=== PATIENT | male | born 1940 | race African-American/Black ===

== ENCOUNTER 2016-05-20 19:37 | Emergency (ER) | payer MEDICARE, OTHER ==
[~2016-05-20] VITALS: Ht 175.3 cm; Wt 78.0 kg
[~2016-05-20 19:37] MED LIST: BACTRIM DOUBLE S1 E1 ORAL; BACTRIM DS TAB1 EAC1 ORAL; CEPHALEXIN500 MG ORAL; CIPROFLOXACIN500 M2 ORAL; FLOMAX0.4 MG ORAL; MACROBID100 MG ORAL; NITROFURANTOIN100 M2 ORAL; NKM; PHENAZOPYRIDIN100 MG ORAL; PHENAZOPYRIDIN200 MG ORAL; TAMSULOSIN HCL0.4 MG ORAL; TRAMADOL HCL50 MG ORAL; UNOBMED
[2016-05-20] MEDS ORDERED: NKM (19:44)
[2016-05-20 20:08] VITALS: BP 159/87
[2016-05-20 20:48] LABS: APPEARANCE,URINE VERY CLOUDY; KETONES,URINE NEGATIVE (NEGATIVE); LEUKOCYTE ESTERASE ,URINE 3+ (NEGATIVE); NITRITE,URINE NEGATIVE (NEGATIVE); PH,URINE 9 (4.5-8.0); PROTEIN,URINE 3+ (NEGATIVE); UROBILINOGEN,URINE NORMAL MG/DL (0.0-1.0)
--- NOTE | 2016-05-20 21:06 | Emergency Room Report ---
History of Present Illness General Chief Complaint: Male Urogenital Problems Source: Patient Present Illness HPI This patient has an indwelling Adrian catheter. He states he has had the catheter for about 9 months. He does have an appointment with a urologist at the end of this month [place]. He states that he believes that his prostate is the problem. Regardless, the patient states that about 4-5 hours ago he noticed that his Adrian catheter was clogged and not draining. He denies fever or chills. He denies nausea or vomiting. He denies abdominal pain. He has no other complaints. Allergies: Coded Allergies: No Known Allergies (Unverified , 03/01/14) Patient History Past Medical History: other - urinary retention with indwelling adrian catheter. Social History: Denies: alcohol use, drug use, smoking Reviewed Nursing Documentation: PMH: Agreed, PSxH: Agreed Nursing Documentation-PMH Past Medical History: No Stated History Hx Cardiac Problems: No Hx Hypertension: No Hx Pacemaker: No Hx Asthma: No Hx COPD: No Hx Diabetes: No Hx Cancer: Yes - prostate Hx Gastrointestinal Problems: No Hx Neurological Problems: No Hx Cerebrovascular Accident: No Hx Seizures: No Review of Systems All Other Systems: negative except mentioned in HPI Physical Exam Vital Signs Date Time Temp Pulse Resp B/P Pulse Ox O2 Delivery O2 Flow Rate FiO2 05/20/16 19:39 98.2 98 18 184/88 99 Room Air Sp02 EP Interpretation: reviewed, normal General Appearance: no apparent distress, alert, GCS 15, non-toxic Head: normocephalic, atraumatic Eyes: bilateral eye PERRL, bilateral eye normal inspection ENT: hearing grossly normal, normal pharynx, no angioedema, normal voice Neck: normal inspection Respiratory: no respiratory distress, no retraction, no accessory muscle use, speaking full sentences Cardiovascular #1: no edema Gastrointestinal: normal bowel sounds, non tender, soft, non-distended, no guarding, no rebound Rectal: deferred Musculoskeletal: back normal, gait/station normal, normal range of motion, non- tender Neurologic: alert, oriented x3, responsive, motor strength/tone normal, sensory intact, speech normal Psychiatric: judgement/insight normal, memory normal, mood/affect normal, no suicidal/homicidal ideation Skin: normal color, no rash, warm/dry, well hydrated Medical Decision Making Diagnostic Impression: Primary Impression: Adrian catheter problem ER Course This patient has a clogged Adrian catheter. Adrian catheter was replaced. The patient feels much better. Urinalysis is consistent with colonization. The patient has no systemic symptoms. Patient is instructed to followup closely with her primary care physician and with the [place] urologist as previously planned. The patient's given return precautions and followup instructions. Labs Test 05/20/16 20:00 Urine Color Yellow Urine Appearance Very cloudy Urine pH 9 (4.5-8.0) Urine Specific [place] 1.015 (1.005-1.035) Urine Protein 3+ (NEGATIVE) Urine Glucose (UA) Negative (NEGATIVE) Urine Ketones Negative (NEGATIVE) Urine Occult Blood Negative (NEGATIVE) Urine Nitrite Negative (NEGATIVE) Urine Bilirubin Negative (NEGATIVE) Urine Urobilinogen Normal MG/DL (0.0-1.0) Urine Leukocyte Esterase 3+ (NEGATIVE) Urine RBC 0-2 /HPF (0 - 0) Urine WBC 5-10 /HPF (0 - 0) Urine Squamous Epithelial Cells Few /LPF (NONE/OCC) Urine Triple Phosphate Crystals Moderate /LPF (NONE) Urine Amorphous Sediment Many /LPF (NONE) Urine Bacteria Moderate /HPF (NONE) Last Vital Signs Date Time Temp Pulse Resp B/P Pulse Ox O2 Delivery O2 Flow Rate FiO2 05/20/16 20:08 98.2 84 18 159/87 99 Room Air Status: improved Disposition: HOME, SELF-CARE Condition: Improved Referrals: NOT CHOSEN [facility]/,REFERRING (PCP) CHANI TRUONG D.O. May 20, 2016 21:06
[2016-05-20 21:10] LABS: RBC,URINE 0-2 /HPF (0 - 0)
[2016-05-20 21:12] LABS: AMORPHOUS SEDIMENT,UR MANY /LPF; BACTERIA,URINE MODERATE /HPF; SQUAMOUS EPITHELIAL CELL,UR FEW /LPF (NONE/OCC)
[2016-05-20 21:13] LABS: TRIPLE PHOSPHATE CRYSTAL,UR MODERATE /LPF
[2016-05-20 21:17] VITALS: BP 140/78
[2016-05-20 21:34] VITALS: BP 140/78
== END 2016-05-20 21:50 | disposition home or self-care (01) ==
LOC: EMR 19:59
DX: T83.9XXA Unspecified complication of genitourinary prosthetic device, implant and graft, initial encounter (principal); Z85.46 Personal history of malignant neoplasm of prostate; X58.XXXA Exposure to other specified factors, initial encounter; Y93.9 Activity, unspecified; Y92.89 Other specified places as the place of occurrence of the external cause
CPT/HCPCS: 81001; 87086; 99283

== ENCOUNTER 2016-06-18 20:47 | Emergency (ER) | payer MEDICARE, OTHER ==
[~2016-06-18] VITALS: Ht 167.6 cm; Wt 68.0 kg
[2016-06-18 21:50] VITALS: BP 115/87
[2016-06-18 22:38] VITALS: BP 115/87
--- NOTE | 2016-06-19 03:42 | Emergency Room Report ---
History of Present Illness General Chief Complaint: General Complaint Source: Patient Present Illness HPI 75-year-old male presents to ED for evaluation. Patient is here to have Adrian catheter replaced. States that Adrian catheter placed 2 weeks ago at [place]. States that he feels blocked since this morning and unable to urinate. Denies any pain. Denies any fevers or chills. Denies flank pain. No aggravating relieving factors. Denies any other associated symptoms Allergies: Coded Allergies: No Known Allergies (Unverified , 03/01/14) Patient History Past Medical History: other - BPH Past Surgical History: none Pertinent Family History: none Social History: Denies: alcohol use, drug use, smoking Immunizations: UTD Reviewed Nursing Documentation: PMH: Agreed, PSxH: Agreed Nursing Documentation-PMH Past Medical History: No History, Except For Hx Cardiac Problems: No Hx Hypertension: No Hx Pacemaker: No Hx Asthma: No Hx COPD: No Hx Diabetes: No Hx Cancer: Yes - prostate Hx Gastrointestinal Problems: No Hx Neurological Problems: No Hx Cerebrovascular Accident: No Hx Seizures: No Review of Systems All Other Systems: negative except mentioned in HPI Physical Exam Vital Signs Date Time Temp Pulse Resp B/P Pulse Ox O2 Delivery O2 Flow Rate FiO2 06/18/16 21:40 98.1 78 16 115/87 100 Room Air Sp02 EP Interpretation: reviewed, normal General Appearance: no apparent distress, alert, GCS 15, non-toxic Head: normocephalic, atraumatic Eyes: bilateral eye PERRL, bilateral eye normal inspection ENT: hearing grossly normal, normal pharynx, no angioedema, normal voice Neck: full range of motion, supple/symm/no masses Respiratory: chest non-tender, lungs clear, normal breath sounds, speaking full sentences Cardiovascular #1: regular rate, rhythm, no edema Cardiovascular #2: 2+ carotid (R), 2+ carotid (L), 2+ radial (R), 2+ radial (L) , 2+ dorsalis pedis (R), 2+ dorsalis pedis (L) Gastrointestinal: normal bowel sounds, non tender, soft, non-distended, no guarding, no rebound Rectal: deferred Genitourinary: normal inspection, no CVA tenderness, other - adrian Musculoskeletal: back normal, gait/station normal, normal range of motion, non- tender Neurologic: alert, oriented x3, responsive, motor strength/tone normal, sensory intact, speech normal Psychiatric: judgement/insight normal, memory normal, mood/affect normal, no suicidal/homicidal ideation Reflexes: 3+ bicep (R), 3+ bicep (L), 3+ tricep (R), 3+ tricep (L), 3+ knee (R) , 3+ knee (L) Skin: normal color, no rash, warm/dry, well hydrated Lymphatic: no adenopathy Medical Decision Making Diagnostic Impression: Primary Impression: Urinary retention ER Course Hospital Course 75-year-old M presents to ED complaining of urinary retention. Differential diagnoses include: obstruction, UTI, BPH Clinical course Patient placed on stretcher. After initial history and physical I ordered adrian cather with immediate relief of obstruction Diagnosis - urinary retention Stable and discharged home with adrian + leg bag. Instructed to followup with PMD/urologist. Return to ED if symptoms recur or worsen Last Vital Signs Date Time Temp Pulse Resp B/P Pulse Ox O2 Delivery O2 Flow Rate FiO2 06/18/16 22:38 98.1 81 16 115/87 100 Room Air Status: improved Disposition: HOME, SELF-CARE Condition: Stable Referrals: NOT CHOSEN [facility]/,REFERRING (PCP) Patient Instructions: Benign Prostatic Hypertrophy KENDRICK CASTELLON M.D. Jun 19, 2016 03:42
== END 2016-06-18 22:38 | disposition home or self-care (01) ==
LOC: EMR 21:14
DX: R33.9 Retention of urine, unspecified (principal); Z85.46 Personal history of malignant neoplasm of prostate; N40.0 Benign prostatic hyperplasia without lower urinary tract symptoms; T83.9XXA Unspecified complication of genitourinary prosthetic device, implant and graft, initial encounter; Y84.6 Urinary catheterization as the cause of abnormal reaction of the patient, or of later complication, without mention of misadventure at the time of the procedure; Y92.9 Unspecified place or not applicable; Y99.8 Other external cause status

== ENCOUNTER 2016-08-28 01:29 | Emergency (ER) | payer MEDICARE, OTHER ==
[~2016-08-28] VITALS: Ht 175.3 cm; Wt 78.0 kg
--- NOTE | 2016-08-28 02:14 | Emergency Room Report ---
History of Present Illness General Chief Complaint: Male Urogenital Problems Source: Patient Present Illness HPI This is a 75-year-old male with history of urinary retention. He has a chronic Bell. His most recent one was placed on a month ago. The last for 5 hours his been unable to urinate. Similar symptom in the past. No fever chills but no nausea vomiting. Pain is 10 out of 10. Localized suprapubic area. No trauma. Allergies: Coded Allergies: No Known Allergies (Unverified , 03/01/14) Patient History Past Medical History: see triage record, old chart reviewed Past Surgical History: other Pertinent Family History: none Social History: Denies: smoking Immunizations: other Reviewed Nursing Documentation: PMH: Agreed, PSxH: Agreed Nursing Documentation-PMH Hx Cardiac Problems: No Hx Hypertension: No Hx Pacemaker: No Hx Asthma: No Hx COPD: No Hx Diabetes: No Hx Cancer: Yes - prostate Hx Neurological Problems: No Hx Cerebrovascular Accident: No Hx Seizures: No Review of Systems Eye: Denies: blurred vision, eye pain ENT: Denies: ear pain, nose congestion, throat swelling Respiratory: Denies: cough, shortness of breath Cardiovascular: Denies: chest pain, palpitations Gastrointestinal: Denies: abdominal pain, diarrhea, nausea, vomiting Genitourinary: Reports: retention Musculoskeletal: Denies: back pain, joint pain Skin: Denies: rash Neurological: Denies: headache, numbness Endocrine: Denies: increased thirst, increased urine Hematologic/Lymphatic: Denies: easy bruising All Other Systems: negative except mentioned in HPI Physical Exam Vital Signs Date Time Temp Pulse Resp B/P Pulse Ox O2 Delivery O2 Flow Rate FiO2 08/28/16 01:29 97.5 114 22 166/96 98 Room Air vitals with hypertension and tachycardia Sp02 EP Interpretation: reviewed, normal General Appearance: well appearing, alert, mild distress Head: normocephalic, atraumatic Eyes: bilateral eye EOMI, bilateral eye PERRL ENT: hearing grossly normal, normal pharynx Neck: full range of motion, supple, no meningismus Respiratory: chest non-tender, lungs clear, normal breath sounds Cardiovascular #1: regular rate, rhythm, no murmur Gastrointestinal: normal bowel sounds, non tender, no mass, no organomegaly, no bruit, non-distended, tenderness - Full bladder Genitourinary: other - Bell with calcium deposit along the tubi Musculoskeletal: back normal, gait/station normal, normal range of motion Psychiatric: mood/affect normal Skin: warm/dry Procedures Additional Procedure Procedure Narrative Procedure: Bell insertion Indication: Urinary retention Description: Under sterile condition, remove his Bell catheter. It was a 16 Romanian coud. I replaced it within a regular 18 Romanian catheter. Patient had about 1500 mL output. He felt much better. Blood pressure normalized. She tolerated seizure without a problem. Medical Decision Making Diagnostic Impression: Primary Impression: Urinary retention ER Course Patient present with urinary retention. Secondary to obstruction from the region calcium deposit. No evidence of infection. We'll discharge home. Last Vital Signs Date Time Temp Pulse Resp B/P Pulse Ox O2 Delivery O2 Flow Rate FiO2 08/28/16 01:29 97.5 114 22 166/96 98 Room Air Status: improved Disposition: HOME, SELF-CARE Condition: Stable Additional Instructions: followup with your Dr. in 7 days. Return it worse. KAMILLE MORELAND M.D. August 28, 2016 02:14
[2016-08-28 02:28] VITALS: BP 151/92
[2016-08-28 02:29] VITALS: BP 166/96
[2016-08-29] MEDS ORDERED: NITROFURANTOIN100 M2 ORAL (22:04)
[2016-08-29] MEDS ORDERED: FLOMAX0.4 MG ORAL (22:04)
== END 2016-08-28 02:30 | disposition home or self-care (01) ==
LOC: EDBD 01:29 → EDUNIT# 01:29 → EMR 02:05
DX: R33.9 Retention of urine, unspecified (principal); Z85.46 Personal history of malignant neoplasm of prostate
CPT/HCPCS: 51702; 99284

== ENCOUNTER 2016-12-16 18:48 | Emergency (ER) | payer MEDICARE, OTHER ==
[~2016-12-16] VITALS: Ht 175.3 cm; Wt 78.0 kg
[2016-12-16 19:44] LABS: APPEARANCE,URINE SLIGHTLY CLOUDY; KETONES,URINE 1+ (NEGATIVE); LEUKOCYTE ESTERASE ,URINE 3+ (NEGATIVE); NITRITE,URINE NEGATIVE (NEGATIVE); PH,URINE 6.5 (4.5-8.0); PROTEIN,URINE 3+ (NEGATIVE); UROBILINOGEN,URINE NORMAL MG/DL (0.0-1.0)
[2016-12-16 20:02] VITALS: BP 134/79
[2016-12-16 20:27] LABS: AMORPHOUS SEDIMENT,UR FEW /LPF; BACTERIA,URINE MODERATE /HPF; YEAST,URINE FEW /HPF
[2016-12-16] MEDS ORDERED: BACTRIM DS TAB1 EAC1 ORAL (21:17)
[2016-12-16 21:25] VITALS: BP 134/79
[2016-12-16 21:27] VITALS: BP 134/79
--- NOTE | 2016-12-16 23:25 | Emergency Room Report ---
History of Present Illness General Chief Complaint: General Complaint Source: Patient Present Illness HPI The patient is a 76-year-old male presenting for Bell catheter malfunction. He has been seen in this emergency department many times for the same complaints. He states he has been unable to pass urine since this morning and is now experiencing lower abdominal pain. This is described as a 10 out of 10 dull ache and does not radiate from the mid lower abdomen. This began hours after he was unable to urinate. He denies other symptoms including nausea, vomiting, fever, chills, back pain, penile discharge Allergies: Coded Allergies: No Known Allergies (Unverified , 03/01/14) Patient History Past Medical History: see triage record Pertinent Family History: none Reviewed Nursing Documentation: PMH: Agreed, PSxH: Agreed Nursing Documentation-PMH Hx Cardiac Problems: No Hx Hypertension: No Hx Pacemaker: No Hx Asthma: No Hx COPD: No Hx Diabetes: No Hx Cancer: No Hx Dialysis: No Hx Neurological Problems: No Hx Cerebrovascular Accident: No Hx Seizures: No Review of Systems All Other Systems: negative except mentioned in HPI Physical Exam Vital Signs Date Time Temp Pulse Resp B/P (MAP) Pulse Ox O2 Delivery O2 Flow Rate FiO2 12/16/16 18:54 98.2 107 20 169/80 100 Room Air Sp02 EP Interpretation: reviewed, normal General Appearance: no apparent distress, alert, GCS 15, non-toxic Head: normocephalic, atraumatic Eyes: bilateral eye normal inspection, bilateral eye PERRL ENT: hearing grossly normal, normal pharynx, no angioedema, normal voice Neck: full range of motion, supple/symm/no masses Respiratory: chest non-tender, lungs clear, normal breath sounds, speaking full sentences Gastrointestinal: normal bowel sounds, soft, non-distended, no guarding, no rebound, tenderness - suprapubic Genitourinary: normal inspection, no CVA tenderness, other - Bell catheter in place Musculoskeletal: back normal, gait/station normal, normal range of motion, non- tender Neurologic: alert, oriented x3, responsive, motor strength/tone normal, sensory intact, speech normal Psychiatric: judgement/insight normal, memory normal, mood/affect normal, no suicidal/homicidal ideation Skin: normal color, no rash, warm/dry, well hydrated Medical Decision Making PA Attestation Dr. Ferrera is my supervising physician. Patient management was discussed with my supervising physician Diagnostic Impression: Primary Impression: Bell catheter problem Qualified Codes: T83.9XXA - Unspecified complication of genitourinary prosthetic device, implant and graft, initial encounter Additional Impression: UTI (urinary tract infection) Qualified Codes: N39.0 - Urinary tract infection, site not specified; R31.9 - Hematuria, unspecified ER Course The patient is a 76-year-old male presenting for Bell catheter malfunction Differential diagnoses considered but not limited to: Physical Bell catheter malfunction, urinary tract infection, pyelonephritis, hematoma, stricture, among others Physical exam: he appears to be in mild distress. There is tenderness to palpation over suprapubic region only. No CVA tenderness Bell catheter is replaced. 600 mL collected. The patient states that pain is now a 0/10 and he is much more relaxed. Blood pressure has returned to normal. Urinalysis shows signs of infection with blood. Based on microbiology report from past infection, the patient is given a prescription for Bactrim DS. He needs to followup with his urologist as soon as possible. He is given precautions to return to the emergency department Laboratory Tests Test 12/16/16 19:30 Urine Color Brown Urine Appearance Slightly cloudy Urine pH 6.5 (4.5-8.0) Urine Specific [place] 1.015 (1.005-1.035) Urine Protein 3+ (NEGATIVE) H Urine Glucose (UA) Negative (NEGATIVE) Urine Ketones 1+ (NEGATIVE) H Urine Occult Blood 5+ (NEGATIVE) H Urine Nitrite Negative (NEGATIVE) Urine Bilirubin Negative (NEGATIVE) Urine Urobilinogen Normal MG/DL (0.0-1.0) Urine Leukocyte Esterase 3+ (NEGATIVE) H Urine RBC 10-15 /HPF (0 - 0) H Urine WBC 5-10 /HPF (0 - 0) H Urine Squamous Epithelial Cells None /LPF (NONE/OCC) Urine Amorphous Sediment Few /LPF (NONE) H Urine Bacteria Moderate /HPF (NONE) H Urine Yeast Few /HPF (NONE) H Lab Results Impression Significant occult blood, RBCs, white blood cells, and bacteria Last Vital Signs Date Time Temp Pulse Resp B/P (MAP) Pulse Ox O2 Delivery O2 Flow Rate FiO2 12/16/16 21:27 98.5 84 20 134/79 100 Room Air Status: improved Disposition: HOME, SELF-CARE Condition: Improved Scripts Trimethoprim/Sulfamethoxazole 160/800* (BACTRIM DS TABLET*) 1 Each Tablet 1 TAB ORAL TWICE A DAY, #14 TAB Prov: MAGNUS HOUSTON 12/16/16 Referrals: NOT CHOSEN [facility]/,REFERRING (PCP) Patient Instructions: Urinary Tract Infection, Acute Urinary Retention, Male Additional Instructions: I discussed my findings with the patient. All questions and concerns have been answered. Treatment and medication compliance have been addressed. I advised the patient that they need to follow up with PMD in 3-5 days. Return to ED if symptoms worsen, new symptoms arise, or if needed for any reason. Patient verbalized understanding of discharge instructions. MAGNUS HOUSTON Dec 16, 2016 23:25
== END 2016-12-16 21:27 | disposition home or self-care (01) ==
LOC: EMR 19:08
DX: T83.098A Other mechanical complication of other urinary catheter, initial encounter (principal); Y84.6 Urinary catheterization as the cause of abnormal reaction of the patient, or of later complication, without mention of misadventure at the time of the procedure; Y92.009 Unspecified place in unspecified non-institutional (private) residence as the place of occurrence of the external cause; N39.0 Urinary tract infection, site not specified
CPT/HCPCS: 51702; 81003; 87086; 87181; 99283

== ENCOUNTER 2017-01-07 18:59 | Emergency (ER) | payer MEDICARE, OTHER ==
[~2017-01-07] VITALS: Ht 175.3 cm; Wt 77.1 kg
[2017-01-07 19:10] VITALS: BP 163/83
[2017-01-07 20:05] LABS: KETONES,URINE NEGATIVE (NEGATIVE); LEUKOCYTE ESTERASE ,URINE 3+ (NEGATIVE); NITRITE,URINE POSITIVE (NEGATIVE); PH,URINE 7 (4.5-8.0); PROTEIN,URINE 2+ (NEGATIVE); UROBILINOGEN,URINE NORMAL MG/DL (0.0-1.0)
[2017-01-07 20:08] LABS: APPEARANCE,URINE SLIGHTLY CLOUDY
[2017-01-07 20:27] LABS: BACTERIA,URINE MODERATE /HPF; RBC,URINE 15-20 /HPF (0 - 0)
[2017-01-07 20:28] LABS: AMORPHOUS SEDIMENT,UR FEW /LPF
[2017-01-07] MEDS ORDERED: BACTRIM DS TAB1 EAC1 ORAL (20:36)
[2017-01-07 21:00] VITALS: BP 154/80
--- NOTE | 2017-01-07 21:03 | Emergency Room Report ---
History of Present Illness General Chief Complaint: Male Urogenital Problems Source: Patient (MAGNUS HOUSTON) Present Illness HPI The patient is a 76-year-old male with a history of urinary retention well known to this emergency Department presenting for Adrian catheter change. He states that he has not had any passage of urine for the past 5 hours and is developing pain described as a 6/10 dull ache to the mid lower abdomen. Does not radiate. This frequently happens. The patient had a urinary tract infection for the last visit and states that he took all prescribed antibiotics. He denies any other symptoms including F, chills, back pain, N, V (MAGNUS HOUSTON) Allergies: Coded Allergies: No Known Allergies (Unverified , 03/01/14) Patient History Past Medical History: see triage record Pertinent Family History: none Reviewed Nursing Documentation: PMH: Agreed, PSxH: Agreed (MAGNUS HOUSTON) Nursing Documentation-PMH Hx Cardiac Problems: No Hx Hypertension: No Hx Pacemaker: No Hx Asthma: No Hx COPD: No Hx Diabetes: No Hx Cancer: No Hx Dialysis: No Hx Neurological Problems: No Hx Cerebrovascular Accident: No Hx Seizures: No (MAGNUS HOUSTON) Review of Systems All Other Systems: negative except mentioned in HPI (MAGNUS HOUSTON) Physical Exam Vital Signs Date Time Temp Pulse Resp B/P (MAP) Pulse Ox O2 Delivery O2 Flow Rate FiO2 01/07/17 19:09 97.9 105 20 163/83 99 Room Air Sp02 EP Interpretation: reviewed, normal General Appearance: no apparent distress, alert, GCS 15, non-toxic Head: normocephalic, atraumatic Eyes: bilateral eye normal inspection, bilateral eye PERRL ENT: hearing grossly normal, normal pharynx, no angioedema, normal voice Neck: full range of motion, supple/symm/no masses Gastrointestinal: normal inspection, soft, tenderness - suprapubic Genitourinary: penis normal, other - adrian catheter in place Neurologic: alert, oriented x3, responsive, motor strength/tone normal, sensory intact, speech normal Psychiatric: judgement/insight normal, memory normal, mood/affect normal, no suicidal/homicidal ideation Skin: normal color, no rash, warm/dry, well hydrated (MAGNUS HOUSTON P.AKamron) Medical Decision Making PA Attestation Dr. Yi is my supervising physician. Patient management was discussed with my supervising physician (MAGNUS HOUSTON) Diagnostic Impression: Primary Impression: Urinary tract infection Qualified Codes: T83.511A - Infection and inflammatory reaction due to indwelling urethral catheter, initial encounter; N39.0 - Urinary tract infection , site not specified ER Course The patient is a 76 year old male presenting for Adrian catheter change DDx considered but not limited to: UTI, pyelonephritis, stricture, prostatitis, among others PE: Afebrile.NAD Abd is soft. TTP over suprapubic region only No CVA tenderness Adrian catheter changed without difficulty. Good flow. Pt feels relieved UA shows infection Most recent microbiology report shows susceptibility with Bactrim. He is again prescribed this antibiotic and needs to follow up with his primary doctor and urologist. ER precautions given Laboratory Tests Test 01/07/17 19:40 Urine Color Pale yellow Urine Appearance Slightly cloudy Urine pH 7 (4.5-8.0) Urine Specific [place] 1.010 (1.005-1.035) Urine Protein 2+ (NEGATIVE) H Urine Glucose (UA) Negative (NEGATIVE) Urine Ketones Negative (NEGATIVE) Urine Occult Blood 4+ (NEGATIVE) H Urine Nitrite Positive (NEGATIVE) H Urine Bilirubin Negative (NEGATIVE) Urine Urobilinogen Normal MG/DL (0.0-1.0) Urine Leukocyte Esterase 3+ (NEGATIVE) H Urine RBC 15-20 /HPF (0 - 0) H Urine WBC 10-15 /HPF (0 - 0) H Urine Squamous Epithelial Cells None /LPF (NONE/OCC) Urine Amorphous Sediment Few /LPF (NONE) H Urine Bacteria Moderate /HPF (NONE) H Lab Results Impression consistent with UTI (MAGNUS HOUSTON P.AKamron) ER Course Patient with positive urine culture, sensitive to Bactrim (Vicky Ortega M.D.) Last Vital Signs Date Time Temp Pulse Resp B/P (MAP) Pulse Ox O2 Delivery O2 Flow Rate FiO2 01/07/17 19:10 97.9 105 20 163/83 99 Room Air Status: improved (MAGNUS HOUSTON P.A.) Disposition: HOME, SELF-CARE Condition: Improved Scripts Trimethoprim/Sulfamethoxazole 160/800* (BACTRIM DS TABLET*) 1 Each Tablet 1 TAB ORAL TWICE A DAY, #20 TAB Prov: MAGNUS HOUSTON 01/07/17 Patient Instructions: Urinary Tract Infection Additional Instructions: I discussed my findings with the patient. All questions and concerns have been answered. Treatment and medication compliance have been addressed. I advised the patient that they need to follow up with PMD in 3-5 days. Return to ED if symptoms worsen, new symptoms arise, or if needed for any reason. Patient verbalized understanding of discharge instructions. The patient was informed he needs to see a urologist urgently. MAGNUS HOUSTON Jan 07, 2017 21:03 Vicky Ortega M.D. Jan 11, 2017 03:53
[2017-03-19] MEDS ORDERED: UNOBMED (13:40)
[2017-03-19] MEDS ORDERED: BACTRIM DS TAB1 EAC1 ORAL (14:24)
== END 2017-01-07 22:00 | disposition home or self-care (01) ==
LOC: EMR 21:48
DX: N39.0 Urinary tract infection, site not specified (principal)
CPT/HCPCS: 81003; 87086; 87181; 99283

== ENCOUNTER 2017-02-01 15:45 | Emergency (ER) | payer MEDICARE, OTHER ==
[~2017-02-01] VITALS: Ht 175.3 cm; Wt 78.0 kg
--- NOTE | 2017-02-01 16:22 | Emergency Room Report ---
History of Present Illness General Chief Complaint: Male Urogenital Problems Source: Patient Present Illness HPI [id number] walkin with request again for adrian change States not draining today Denies fever/chills, abd pain, nausea/vomiting, back pain Has been here multiple times for same Last was 2 weeks ago. Urine Cx shows susceptibility to Bactrim - he completed course of this already had nitrite + UTI last time Allergies: Coded Allergies: No Known Allergies (Unverified , 03/01/14) Patient History Past Medical History: see triage record, old chart reviewed Past Surgical History: none Pertinent Family History: none Social History: Denies: smoking, alcohol use, drug use Immunizations: UTD Reviewed Nursing Documentation: PMH: Agreed, PSxH: Agreed Nursing Documentation-PMH Hx Cardiac Problems: No Hx Hypertension: No Hx Pacemaker: No Hx Asthma: No Hx COPD: No Hx Diabetes: No Hx Cancer: No Hx Dialysis: No Hx Neurological Problems: No Hx Cerebrovascular Accident: No Hx Seizures: No Review of Systems All Other Systems: negative except mentioned in HPI Physical Exam Vital Signs Date Time Temp Pulse Resp B/P (MAP) Pulse Ox O2 Delivery O2 Flow Rate FiO2 02/01/17 15:52 97.7 93 18 164/71 100 Room Air Sp02 EP Interpretation: reviewed, normal General Appearance: normal inspection, well appearing, no apparent distress, alert Head: atraumatic ENT: normal ENT inspection, hearing grossly normal, normal voice Neck: normal inspection, full range of motion, supple, no bony tend Respiratory: normal inspection, lungs clear, normal breath sounds, no respiratory distress, no retraction, no wheezing Cardiovascular #1: regular rate, rhythm, no edema Gastrointestinal: normal inspection, normal bowel sounds, non tender, soft, no guarding, no hernia Genitourinary: no CVA tenderness, other - Adrian in place. Yellow urine in bag. After flushing, still does drain. Musculoskeletal: normal inspection, back normal, normal range of motion, Sonya' s Sign negative Neurologic: normal inspection, alert, responsive, speech normal Psychiatric: normal inspection, judgement/insight normal, mood/affect normal Skin: normal inspection, normal color, no rash Medical Decision Making Diagnostic Impression: Primary Impression: Adrian catheter problem Qualified Codes: T83.9XXA - Unspecified complication of genitourinary prosthetic device, implant and graft, initial encounter ER Course Adrian cath not draining VSS. Afebrile Non focal abdomen No fever/chills, nausea/vomiting UA: Nitrite positive again. 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 Feb 01, 2017 16:22
[2017-02-01 16:43] LABS: APPEARANCE,URINE CLOUDY; KETONES,URINE NEGATIVE (NEGATIVE); LEUKOCYTE ESTERASE ,URINE 3+ (NEGATIVE); NITRITE,URINE POSITIVE (NEGATIVE); PH,URINE 9 (4.5-8.0); PROTEIN,URINE 2+ (NEGATIVE); UROBILINOGEN,URINE NORMAL MG/DL (0.0-1.0)
[2017-02-01 17:05] VITALS: BP 136/70
[2017-02-01 17:10] LABS: AMORPHOUS SEDIMENT,UR MANY /LPF; BACTERIA,URINE MANY /HPF; RBC,URINE 15-20 /HPF (0 - 0); SQUAMOUS EPITHELIAL CELL,UR OCCASIONAL /LPF (NONE/OCC)
[2017-03-19] MEDS ORDERED: UNOBMED (13:40)
[2017-03-19] MEDS ORDERED: BACTRIM DS TAB1 EAC1 ORAL (14:24)
== END 2017-02-01 17:05 | disposition home or self-care (01) ==
LOC: EMR 16:30
DX: T83.098A Other mechanical complication of other urinary catheter, initial encounter (principal); Y84.6 Urinary catheterization as the cause of abnormal reaction of the patient, or of later complication, without mention of misadventure at the time of the procedure; Y92.009 Unspecified place in unspecified non-institutional (private) residence as the place of occurrence of the external cause; Z87.440 Personal history of urinary (tract) infections
CPT/HCPCS: 81003; 87086; 87181; 99283

== ENCOUNTER 2017-02-17 02:48 | Emergency (ER) | payer MEDICARE, OTHER ==
[~2017-02-17] VITALS: Ht 175.3 cm; Wt 59.9 kg
[2017-02-17 02:50] VITALS: BP 162/80
[2017-02-17 03:19] VITALS: BP 162/80
--- NOTE | 2017-02-17 04:50 | Emergency Room Report ---
History of Present Illness General Chief Complaint: Male Urogenital Problems Source: Patient, EMS Present Illness HPI 76-year-old male presents ED for evaluation. Patient brought in by EMS stating he is unable to urinate for the last 6 hours. Patient has a history of BPH and states he has a Adrian catheter in place. States he is unable to flush the catheter. Describes 6/10 suprapubic pain, sharp, nonradiating. Denies fevers or chills, left flank pain. Denies nausea or vomiting. Patient is well-known to [facility] [place] has been here multiple times for Adrian catheter placement. No other aggravating relieving factors. Denies any other associated symptoms Allergies: Coded Allergies: No Known Allergies (Unverified , 03/01/14) Patient History Past Medical History: none Past Surgical History: none Pertinent Family History: none Social History: Denies: smoking, alcohol use, drug use Immunizations: UTD Reviewed Nursing Documentation: PMH: Agreed, PSxH: Agreed Nursing Documentation-PMH Hx Cardiac Problems: No Hx Hypertension: No Hx Pacemaker: No Hx Asthma: No Hx COPD: No Hx Diabetes: No Hx Dialysis: No Hx Neurological Problems: No Hx Cerebrovascular Accident: No Hx Seizures: No Review of Systems All Other Systems: negative except mentioned in HPI Physical Exam Vital Signs Date Time Temp Pulse Resp B/P (MAP) Pulse Ox O2 Delivery O2 Flow Rate FiO2 02/17/17 02:43 98.1 107 18 162/80 98 Room Air Sp02 EP Interpretation: reviewed, normal General Appearance: no apparent distress, alert, GCS 15, non-toxic Head: normocephalic, atraumatic Eyes: bilateral eye normal inspection, bilateral eye PERRL ENT: hearing grossly normal, normal pharynx, no angioedema, normal voice Neck: full range of motion, supple/symm/no masses Respiratory: chest non-tender, lungs clear, normal breath sounds, speaking full sentences Cardiovascular #1: regular rate, rhythm, no edema Cardiovascular #2: 2+ carotid (R), 2+ carotid (L), 2+ radial (R), 2+ radial (L) , 2+ dorsalis pedis (R), 2+ dorsalis pedis (L) Gastrointestinal: normal bowel sounds, non tender, soft, non-distended, no guarding, no rebound Rectal: deferred Genitourinary: normal inspection, no CVA tenderness Musculoskeletal: back normal, gait/station normal, normal range of motion, non- tender Neurologic: alert, oriented x3, responsive, motor strength/tone normal, sensory intact, speech normal Psychiatric: judgement/insight normal, memory normal, mood/affect normal, no suicidal/homicidal ideation Reflexes: 3+ bicep (R), 3+ bicep (L), 3+ tricep (R), 3+ tricep (L), 3+ knee (R) , 3+ knee (L) Skin: normal color, no rash, warm/dry, well hydrated Lymphatic: no adenopathy Medical Decision Making Diagnostic Impression: Primary Impression: Adrian catheter problem Qualified Codes: T83.9XXA - Unspecified complication of genitourinary prosthetic device, implant and graft, initial encounter ER Course Hospital Course 76-year-old M presents to ED complaining of urinary retention. Differential diagnoses include: obstruction, UTI, BPH Clinical course Patient placed on stretcher. After initial history and physical, old Adrian catheter was removed, and replaced with new adrian cather with immediate relief of obstruction Diagnosis - urinary retention Stable and discharged home with adrian + leg bag. Instructed to followup with PMD/urologist. Return to ED if symptoms recur or worsen Last Vital Signs Date Time Temp Pulse Resp B/P (MAP) Pulse Ox O2 Delivery O2 Flow Rate FiO2 02/17/17 03:19 98.1 18 162/80 98 Room Air 02/17/17 02:43 107 Status: improved Disposition: HOME, SELF-CARE Condition: Stable Referrals: NOT CHOSEN IPA/MD,REFERRING (PCP) Patient Instructions: Adrian Catheter Care, Adult, [id number] KENDRICK CASTELLON M.D. Feb 17, 2017 04:50
[2017-03-19] MEDS ORDERED: UNOBMED (13:40)
[2017-03-19] MEDS ORDERED: BACTRIM DS TAB1 EAC1 ORAL (14:24)
== END 2017-02-17 03:19 | disposition home or self-care (01) ==
LOC: EDBD 02:48 → EMR 03:00
DX: N40.1 Benign prostatic hyperplasia with lower urinary tract symptoms (principal); R33.8 Other retention of urine; T83.9XXA Unspecified complication of genitourinary prosthetic device, implant and graft, initial encounter; Y92.9 Unspecified place or not applicable
CPT/HCPCS: 51702; 99283

== ENCOUNTER → 2017-03-19 | Emergency (ER) | payer MEDICARE, OTHER ==
[~2017-03-19] VITALS: Ht 175.3 cm; Wt 78.0 kg
[~2017-03-19] MED LIST changes: +Bactrim DS (160mg/800mg) tab ORAL ONE; +IBUPROFEN600 MG ORAL
--- NOTE | 2017-03-19 14:35 | Emergency Room Report ---
History of Present Illness General Chief Complaint: Male Urogenital Problems Source: Patient Present Illness HPI 76-year-old male walks in with Bell not functioning was placed previously for obstruction Patient was not discharged in antibiotics at the time Urine culture shows UTI, susceptible to Bactrim Denies abdominal pain, nausea or vomiting or diarrhea denie fever chills Allergies: Coded Allergies: No Known Allergies (Unverified , 03/01/14) Patient History Past Medical History: see triage record Past Surgical History: none Social History: Denies: smoking, alcohol use, drug use Immunizations: UTD Reviewed Nursing Documentation: PMH: Agreed, PSxH: Agreed Nursing Documentation-PMH Hx Cardiac Problems: No Hx Hypertension: No Hx Pacemaker: No Hx Asthma: No Hx COPD: No Hx Diabetes: No Hx Dialysis: No Hx Neurological Problems: No Hx Cerebrovascular Accident: No Hx Seizures: No Review of Systems All Other Systems: negative except mentioned in HPI Physical Exam Vital Signs Date Time Temp Pulse Resp B/P (MAP) Pulse Ox O2 Delivery O2 Flow Rate FiO2 03/19/17 13:37 98.1 119 18 176/87 99 Room Air Sp02 EP Interpretation: reviewed, normal General Appearance: normal inspection, well appearing, no apparent distress, alert, GCS 15, non-toxic Head: normocephalic, atraumatic Eyes: bilateral eye PERRL, bilateral eye EOMI ENT: normal ENT inspection, hearing grossly normal, normal pharynx, no angioedema, normal voice, TMs + canals normal, uvula midline, moist mucus membranes Neck: normal inspection, full range of motion, supple, thyroid normal, no meningismus, no bony tend Respiratory: normal inspection, lungs clear, normal breath sounds, no rhonchi, no respiratory distress, no retraction, no accessory muscle use, no wheezing, speaking full sentences Cardiovascular #1: regular rate, rhythm, no edema, no JVD, normal capillary refill Gastrointestinal: normal inspection, normal bowel sounds, non tender, soft, no mass, no peritonitis, non-distended, no guarding, no hernia, no pulsatile mass Genitourinary: no CVA tenderness, other - Bell tip encrusted with thick urine , pus Musculoskeletal: normal inspection, back normal, normal range of motion, no calf tenderness, pelvis stable, Sonya's Sign negative Neurologic: normal inspection, alert, oriented x3, responsive, physical instructor III-XII nml as tested, motor strength/tone normal, cerebellar normal, normal gait, speech normal Psychiatric: normal inspection, judgement/insight normal, mood/affect normal, no suicidal/homicidal ideation, no delusions Skin: normal inspection, normal color, no rash Lymphatic: normal inspection, no adenopathy Medical Decision Making Diagnostic Impression: Primary Impression: Bell catheter problem Qualified Codes: T83.9XXA - Unspecified complication of genitourinary prosthetic device, implant and graft, initial encounter Additional Impression: UTI (urinary tract infection) Qualified Codes: N30.01 - Acute cystitis with hematuria ER Course Bell replaced Bactrim antibiotics provided based on previous urine cultures Vital signs stable, afebrile Not septic appearing ER course: Patient has remained stable during ED stay. Patient is to be discharged to home. Prescriptions given are bactrim Patient is instructed to follow up with their primary care doctor within 5 days. Strict return precautions discussed with patient such as fever, chills, worsening/severe pain, nausea, vomiting, which may indicate severe illness. Patient verbalizes understanding and agrees with plan. Please note that this Emergency Department Report was dictated using [employer] staff member technology software, occasionally this can lead to erroneous entry secondary to interpretation by the dictation equipment Last Vital Signs Date Time Temp Pulse Resp B/P (MAP) Pulse Ox O2 Delivery O2 Flow Rate FiO2 03/19/17 13:37 98.1 119 18 176/87 99 Room Air Status: improved Disposition: HOME, SELF-CARE Condition: Improved Scripts Trimethoprim/Sulfamethoxazole 160/800* (BACTRIM DS TABLET*) 1 Each Tablet 1 TAB ORAL Q12H for 7 Days, #13 TAB 0 Refills Prov: NONA LAMAS M.D. 03/19/17 Patient Instructions: Urinary Tract Infection NONA LAMAS M.D. Mar 19, 2017 14:35
[2017-03-19 14:37] VITALS: BP 176/87
[2017-03-19 14:47] VITALS: BP 176/87
[2017-03-19 15:06] LABS: APPEARANCE,URINE CLOUDY; KETONES,URINE NEGATIVE (NEGATIVE); LEUKOCYTE ESTERASE ,URINE 3+ (NEGATIVE); NITRITE,URINE NEGATIVE (NEGATIVE); PH,URINE 9 (4.5-8.0); PROTEIN,URINE 3+ (NEGATIVE); UROBILINOGEN,URINE NORMAL MG/DL (0.0-1.0)
[2017-03-19 15:24] LABS: BACTERIA,URINE MANY /HPF
[2017-03-19 15:25] LABS: AMORPHOUS SEDIMENT,UR MODERATE /LPF
== END | disposition home or self-care (01) ==
LOC: EMR 14:13
DX: T83.091A Other mechanical complication of indwelling urethral catheter, initial encounter (principal); Y84.6 Urinary catheterization as the cause of abnormal reaction of the patient, or of later complication, without mention of misadventure at the time of the procedure; Y92.009 Unspecified place in unspecified non-institutional (private) residence as the place of occurrence of the external cause; N39.0 Urinary tract infection, site not specified
CPT/HCPCS: 51702; 81003; 87086; 87181; 99283

== ENCOUNTER 2017-04-03 22:36 | Emergency (ER) | payer MEDICARE, OTHER ==
[~2017-04-03] VITALS: Ht 175.3 cm; Wt 78.0 kg
[~2017-04-03 22:36] MED LIST changes: -Bactrim DS (160mg/800mg) tab ORAL ONE; -IBUPROFEN600 MG ORAL
[2017-04-04 00:11] VITALS: BP 155/70
[2017-04-04 00:13] VITALS: BP 155/70
--- NOTE | 2017-04-04 03:09 | Emergency Room Report ---
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 Also states that he has a right inguinal hernia for many years which has been bothering him. No fever no chills no vomiting has been passing gas and stool regularly Allergies: Coded Allergies: No Known Allergies (Unverified , 03/01/14) Patient History Past Medical History: see triage record Past Surgical History: none Pertinent Family History: none Reviewed Nursing Documentation: PMH: Agreed, PSxH: Agreed Nursing Documentation-PMH Past Medical History: No History, Except For Hx Cardiac Problems: No Hx Hypertension: No Hx Pacemaker: No Hx Asthma: No Hx COPD: No Hx Diabetes: No Hx Dialysis: No Hx Neurological Problems: No Hx Cerebrovascular Accident: No Hx Seizures: No Review of Systems All Other Systems: negative except mentioned in HPI Physical Exam Vital Signs Date Time Temp Pulse Resp B/P (MAP) Pulse Ox O2 Delivery O2 Flow Rate FiO2 04/03/17 22:43 97.9 95 16 178/84 98 Sp02 EP Interpretation: reviewed, normal General Appearance: alert, GCS 15, non-toxic, mild distress Head: normocephalic, atraumatic Eyes: bilateral eye normal inspection, bilateral eye PERRL, bilateral eye EOMI ENT: normal ENT inspection, normal pharynx, normal voice, moist mucus membranes Neck: normal inspection, full range of motion, supple Respiratory: normal inspection, lungs clear, normal breath sounds, no respiratory distress, no retraction, no wheezing, speaking full sentences, chest symmetrical Cardiovascular #1: normal inspection, regular rate, rhythm, no edema, normal capillary refill Cardiovascular #2: 2+ radial (R), 2+ radial (L) Gastrointestinal: other - Right-sided inguinal hernia that is very soft and completely reducible. Genitourinary: other - Bell noted with Allyson colored urine Musculoskeletal: normal inspection, back normal, normal range of motion, non- tender Neurologic: normal inspection, alert, oriented x3, responsive, motor strength/ tone normal, sensory intact, normal gait, speech normal Psychiatric: normal inspection, judgement/insight normal, memory normal Skin: normal inspection, normal color, no rash, warm/dry, well hydrated, normal turgor Medical Decision Making Diagnostic Impression: Primary Impression: Inguinal hernia of right side without obstruction or gangrene Additional Impression: Bell catheter problem ER Course 76-year-old male with right-sided inguinal hernia, and Bell blockage DDX: Bell malfunction, will replace Right-sided inguinal hernia without any signs of strangulation or obstruction Plan: Bell replacement ER course: Patient has remained stable during ED stay. Inguinal hernias reducible, abdomen is nontender Bell was replaced and patient discharged home with a leg bag Disposition: Patient is to be discharged to home. Patient is instructed to follow up with their primary care doctor within 5 days. Patient is instructed to follow up with urology and outpatient surgery within 3 days. Strict return precautions discussed with patient such as fever, chills, worsening/severe pain, chest pain, SOB, nausea, vomiting, which may indicate severe illness. Patient verbalizes understanding and agrees with plan. Please note that this Emergency Department Report was dictated using [employer] nurse technology software, occasionally this can lead to erroneous entry secondary to interpretation by the dictation equipment Last Vital Signs Date Time Temp Pulse Resp B/P (MAP) Pulse Ox O2 Delivery O2 Flow Rate FiO2 04/04/17 00:13 97.9 80 16 155/70 98 Disposition: HOME, SELF-CARE Condition: Improved Referrals: NOT CHOSEN IPA/MD,REFERRING (PCP) Patient Instructions: Hernia, Adult, [id number], Bell Catheter Care, Adult, [id number] Additional Instructions: Please followup with Dr. Hall for follow up for your inguinal hernia. Phone number is [phone] Please followup with your urologist in one week Vicky Ortega M.D. Apr 04, 2017 03:09
== END 2017-04-04 00:13 | disposition home or self-care (01) ==
LOC: EMR 22:45
DX: K40.90 Unilateral inguinal hernia, without obstruction or gangrene, not specified as recurrent (principal); T83.098A Other mechanical complication of other urinary catheter, initial encounter; N40.0 Benign prostatic hyperplasia without lower urinary tract symptoms
CPT/HCPCS: 51702; 99283

== ENCOUNTER 2017-04-09 03:02 | Emergency (ER) | payer MEDICARE, OTHER ==
[~2017-04-09] VITALS: Ht 175.3 cm; Wt 78.0 kg
--- NOTE | 2017-04-09 03:32 | Emergency Room Report ---
History of Present Illness General Chief Complaint: General Complaint Source: Patient Present Illness HPI Is a 76-year-old male with a history of BPH. He has a history of urinary retention with chronic Bell. He was here 5 days ago. He presents with chief complaint of urinary retention for the last 6 hours for unable to urinate. No urine drainage. Similar symptom in the past. No fever chills but no hematuria. Allergies: Coded Allergies: No Known Allergies (Unverified , 03/01/14) Patient History Past Medical History: see triage record, old chart reviewed Past Surgical History: other Pertinent Family History: none Social History: Denies: smoking Immunizations: other Reviewed Nursing Documentation: PMH: Agreed, PSxH: Agreed Nursing Documentation-PMH Past Medical History: No Stated History Hx Cardiac Problems: No Hx Hypertension: No Hx Pacemaker: No Hx Asthma: No Hx COPD: No Hx Diabetes: No Hx Dialysis: No Hx Neurological Problems: No Hx Cerebrovascular Accident: No Hx Seizures: No Review of Systems Eye: Denies: eye pain, blurred vision ENT: Denies: ear pain, nose congestion, throat swelling Respiratory: Denies: cough, shortness of breath Cardiovascular: Denies: chest pain, palpitations Gastrointestinal: Denies: abdominal pain, diarrhea, nausea, vomiting Genitourinary: Reports: retention Musculoskeletal: Denies: back pain, joint pain Skin: Denies: rash Neurological: Denies: headache, numbness Endocrine: Denies: increased thirst, increased urine Hematologic/Lymphatic: Denies: easy bruising All Other Systems: negative except mentioned in HPI Physical Exam Vital Signs Date Time Temp Pulse Resp B/P (MAP) Pulse Ox O2 Delivery O2 Flow Rate FiO2 04/09/17 03:02 99.0 102 18 162/87 100 Room Air vitals and high blood pressure Sp02 EP Interpretation: reviewed, normal General Appearance: well appearing, alert, mild distress Head: normocephalic, atraumatic Eyes: bilateral eye PERRL, bilateral eye EOMI ENT: hearing grossly normal, normal pharynx Neck: full range of motion, supple, no meningismus Respiratory: chest non-tender, lungs clear, normal breath sounds Cardiovascular #1: regular rate, rhythm, no murmur Gastrointestinal: normal bowel sounds, non tender, no mass, no organomegaly, no bruit, non-distended Genitourinary: other - Patient has a 16 Welsh Bell. It is clogged with debris. Musculoskeletal: back normal, gait/station normal, normal range of motion Psychiatric: mood/affect normal Skin: warm/dry Procedures Additional Procedure Procedure Narrative Procedure: Insertion of Bell Indication: Urinary retention Description: Under sterile condition, remove the old Bell. It was clogged with debris. I place a 22 Welsh Bell. Good urine output. A dilator came out. Patient felt better. No complication. Patient tolerated procedure without problem. Medical Decision Making Diagnostic Impression: Primary Impression: Urinary retention ER Course Patient with urinary retention. I suspect that his Bell was too small. I place a larger 1. Explained this to the patient. Last Vital Signs Date Time Temp Pulse Resp B/P (MAP) Pulse Ox O2 Delivery O2 Flow Rate FiO2 04/09/17 03:02 99.0 102 18 162/87 100 Room Air Status: improved Disposition: HOME, SELF-CARE Condition: Stable Additional Instructions: Followup with your Dr. in 7 days. Return if worse. KAMILLE MORELAND M.D. Apr 09, 2017 03:32
[2017-04-09] MEDS ORDERED: IBUPROFEN600 MG ORAL (03:38)
[2017-04-09 03:42] VITALS: BP 162/87
== END 2017-04-09 03:54 | disposition home or self-care (01) ==
LOC: EDBD 03:02 → EMR 03:29
DX: T83.098A Other mechanical complication of other urinary catheter, initial encounter (principal); R33.9 Retention of urine, unspecified; Y84.6 Urinary catheterization as the cause of abnormal reaction of the patient, or of later complication, without mention of misadventure at the time of the procedure; Y92.9 Unspecified place or not applicable
CPT/HCPCS: 51702; 99283

== ENCOUNTER 2017-08-10 18:32 | Emergency (ER) | payer MEDICARE, OTHER ==
[~2017-08-10] VITALS: Ht 175.3 cm; Wt 77.1 kg
[~2017-08-10 18:32] MED LIST changes: +IBUPROFEN600 MG ORAL
--- NOTE | 2017-08-10 19:18 | Emergency Room Report ---
History of Present Illness General Chief Complaint: Male Urogenital Problems Source: Patient Present Illness HPI Patient has a permanent indwelling Adrian. He's states it stopped draining today. He has pain in his lower abdomen at this time. Denies any fevers, chills, nausea, vomiting or change in bowels. He does have a right inguinal hernia also. Pain rated 7/10, suprapubic, constant, pressure, not radiate. No meds taken. H/O DM and BPH. Denies chest pain, dyspnea, anxiety, rashes, extremity pain, headache, change in bowels. (NB - the patient has been seen here multiple times, however, he was given a new registration number because of an error with his name. .) Allergies: Coded Allergies: No Known Allergies (Unverified , 08/10/17) Patient History Past Medical History: see triage record, old chart reviewed Social History: Denies: smoking Social History Narrative at home Reviewed Nursing Documentation: PMH: Agreed; PSxH: Agreed Nursing Documentation-PMH Past Medical History: No History, Except For Review of Systems All Other Systems: negative except mentioned in HPI Physical Exam Vital Signs Date Time Temp Pulse Resp B/P (MAP) Pulse Ox O2 Delivery O2 Flow Rate FiO2 08/10/17 18:57 98.6 55 20 180/86 99 Room Air 98.6 Sp02 EP Interpretation: reviewed, normal General Appearance: well appearing, no apparent distress Head: normocephalic, atraumatic Eyes: bilateral eye normal inspection, bilateral eye PERRL ENT: hearing grossly normal, normal voice, moist mucus membranes Neck: full range of motion, supple Respiratory: no respiratory distress, speaking full sentences Cardiovascular #1: regular rate, rhythm Cardiovascular #2: 2+ radial (L) Gastrointestinal: normal inspection, normal bowel sounds, tenderness - suprapubic Genitourinary: no CVA tenderness, other - adrian Musculoskeletal: no calf tenderness Neurologic: alert, normal gait, grossly normal Psychiatric: mood/affect normal Skin: no rash, other - plethoric Medical Decision Making Diagnostic Impression: Primary Impression: Complication, blocked Adrian catheter Qualified Codes: T83.091A - Other mechanical complication of indwelling urethral catheter, initial encounter Additional Impression: UTI (urinary tract infection) Qualified Codes: T83.511A - Infection and inflammatory reaction due to indwelling urethral catheter, initial encounter; N39.0 - Urinary tract infection , site not specified ER Course Patient has a blocked indwelling fluids started 1 PM. We need to determine if he's had a UTI there. We'll change the Adrian out. The patient also be given Tylenol at this time. Not toxic. Improved pain post adrian replacement. UA with pyuria. Review of prior cultures = + Providencia rettgeri with sens to bactrim. Prior renal function normal. Bactrim given. Culture ordered. Improved with treatment. Patient stable for outpatient observation and treatment. Laboratory Tests Test 08/10/17 19:55 Urine Color Pale yellow Urine Appearance Very cloudy Urine pH 9 (4.5-8.0) Urine Specific Humble 1.015 (1.005-1.035) Urine Protein 3+ (NEGATIVE) H Urine Glucose (UA) Negative (NEGATIVE) Urine Ketones Negative (NEGATIVE) Urine Occult Blood 4+ (NEGATIVE) H Urine Nitrite Positive (NEGATIVE) H Urine Bilirubin Negative (NEGATIVE) Urine Urobilinogen Normal MG/DL (0.0-1.0) Urine Leukocyte Esterase 3+ (NEGATIVE) H Urine RBC 2-4 /HPF (0 - 0) H Urine WBC 30-40 /HPF (0 - 0) H Urine Squamous Epithelial Cells None /LPF (NONE/OCC) Urine Bacteria Many /HPF (NONE) H Last Vital Signs Date Time Temp Pulse Resp B/P (MAP) Pulse Ox O2 Delivery O2 Flow Rate FiO2 08/10/17 18:57 98.6 55 20 180/86 99 Room Air 98.6 Status: improved Disposition: HOME, SELF-CARE Condition: Improved Scripts Trimethoprim/Sulfamethoxazole 160/800* (BACTRIM DS TABLET*) 1 Each Tablet 1 TAB ORAL Q12H, #14 TAB 0 Refills Prov: Mal Philip M.D. 08/10/17 Mal Philip M.D. August 10, 2017 19:18
[2017-08-10 19:20] VITALS: BP 104/75
[2017-08-10 20:09] LABS: APPEARANCE,URINE VERY CLOUDY; BILIRUBIN, URINE NEGATIVE (NEGATIVE); COLOR,URINE PALE YELLOW; GLUCOSE, URINE (UA) NEGATIVE (NEGATIVE); KETONES,URINE NEGATIVE (NEGATIVE); LEUKOCYTE ESTERASE ,URINE 3+ (NEGATIVE); NITRITE,URINE POSITIVE (NEGATIVE); PH,URINE 9 (4.5-8.0); PROTEIN,URINE 3+ (NEGATIVE); UROBILINOGEN,URINE NORMAL MG/DL (0.0-1.0)
[2017-08-10] MEDS ORDERED: Bactrim-DS 1 tab ORAL ONE (21:15)
[2017-08-10] MEDS ORDERED: BACTRIM DS TAB1 EAC1 ORAL (21:16)
[2017-08-10 21:32] VITALS: BP 110/78
[2017-08-10 21:43] VITALS: BP 110/78
== END 2017-08-10 21:45 | disposition home or self-care (01) ==
LOC: EMR 19:41 → MERGE 19:41 → EMR 21:45
DX: T83.091A Other mechanical complication of indwelling urethral catheter, initial encounter (principal); T83.511A Infection and inflammatory reaction due to indwelling urethral catheter, initial encounter; N39.0 Urinary tract infection, site not specified; Y84.6 Urinary catheterization as the cause of abnormal reaction of the patient, or of later complication, without mention of misadventure at the time of the procedure; Y92.9 Unspecified place or not applicable
CPT/HCPCS: 81003; 87086; 87181; 99283

== ENCOUNTER 2017-09-26 06:36 | Emergency (ER) | payer MEDICARE, OTHER ==
[~2017-09-26] VITALS: Ht 175.3 cm; Wt 77.1 kg
--- NOTE | 2017-09-26 06:59 | Emergency Room Report ---
History of Present Illness General Chief Complaint: Male Urogenital Problems Source: Patient Present Illness HPI Patient is a 76-year-old male who has chronic indwelling Bell catheter. Patient presented for decreased urine output. Patient states that he had last urinated last night approximately 11 PM. He denies any fever. He had not been having any vomiting. Patient denies recent trauma. He had not been having any change in the drainage.The patient denies suprapubic pain. Allergies: Coded Allergies: No Known Allergies (Unverified , 03/01/14) Patient History Past Medical History: see triage record Reviewed Nursing Documentation: PMH: Agreed; PSxH: Agreed Nursing Documentation-PMH Past Medical History: No History, Except For Hx Cardiac Problems: No Hx Hypertension: No Hx Pacemaker: No Hx Asthma: No Hx COPD: No Hx Diabetes: No Hx Dialysis: No Hx Neurological Problems: No Hx Cerebrovascular Accident: No Hx Seizures: No Review of Systems All Other Systems: negative except mentioned in HPI Physical Exam Vital Signs Date Time Temp Pulse Resp B/P (MAP) Pulse Ox O2 Delivery O2 Flow Rate FiO2 09/26/17 06:41 97.8 96 16 199/102 97 97.9 General Appearance: well appearing, no apparent distress, alert, GCS 15 Head: normocephalic, atraumatic ENT: hearing grossly normal, normal voice Neck: full range of motion, supple Respiratory: no respiratory distress, speaking full sentences Gastrointestinal: normal inspection, other - distended bladder Genitourinary: normal inspection Musculoskeletal: no calf tenderness Neurologic: normal inspection, alert, oriented x3, normal gait Psychiatric: mood/affect normal Skin: no rash Medical Decision Making Diagnostic Impression: Primary Impression: Urinary retention Additional Impression: Complication, blocked Bell catheter ER Course The patient presented for a urinary retention. Differential diagnosis included was not limited to acute renal failure, catheter obstruction, urinary tract infection and among others. Patient has a benign exam and does not appear to require any further imaging or laboratory testing at this time. The patient's Bell catheter was changed good urine output. The patient is advised to follow up with primary care doctor in 1-2 days. Patient is advised to return if any worsening condition or if any changes in status that are concerning. This report is dictated with [employer] warehouse delivery driver software which may occasionally lead to discrepancies related to use of this software. Last Vital Signs Date Time Temp Pulse Resp B/P (MAP) Pulse Ox O2 Delivery O2 Flow Rate FiO2 09/26/17 06:41 97.8 96 16 199/102 97 97.9 Status: improved Disposition: HOME, SELF-CARE Condition: Stable Scripts Nitrofurantoin Monohyd/M-Cryst* (MACROBID 100 MG*) 100 Mg Capsule 100 MG ORAL EVERY 12 HOURS, #14 CAP Prov: Simone Yi MD 09/26/17 Simone Yi MD Sep 26, 2017 06:59
[2017-09-26] MEDS ORDERED: NITROFURANTOIN100 M2 ORAL (07:00)
[2017-09-26 07:08] VITALS: BP 199/102
== END 2017-09-26 07:09 | disposition home or self-care (01) ==
LOC: EMR 06:57
DX: R33.9 Retention of urine, unspecified (principal); T83.091A Other mechanical complication of indwelling urethral catheter, initial encounter; Y84.6 Urinary catheterization as the cause of abnormal reaction of the patient, or of later complication, without mention of misadventure at the time of the procedure; Y92.9 Unspecified place or not applicable
CPT/HCPCS: 99283

== ENCOUNTER 2017-10-30 22:42 | Emergency (ER) | payer MEDICARE, OTHER ==
[~2017-10-30] VITALS: Ht 175.3 cm; Wt 78.0 kg
[2017-10-30] MEDS ORDERED: CEPHALEXIN500 MG ORAL (23:31)
[2017-10-30 23:58] VITALS: BP 134/68
[2017-10-31 00:12] VITALS: BP 134/68
--- NOTE | 2017-10-31 00:49 | Emergency Room Report ---
History of Present Illness General Chief Complaint: Male Urogenital Problems Source: Patient, Medical Record Present Illness HPI Patient is a 77-year-old male presented after increased the clogging of his Bell catheter. Patient was noted to have increased discomfort. The patient had multiple prior visits for similar symptoms. He reports having increased pain to the right ankle area from hernia which had become more prominent. Patient denies any nausea or vomiting.He reports having some increased cloudy urine. He denies any fever or vomiting. Allergies: Coded Allergies: No Known Allergies (Unverified , 03/01/14) Patient History Past Medical History: see triage record Reviewed Nursing Documentation: PMH: Agreed; PSxH: Agreed Nursing Documentation-PMH Hx Cardiac Problems: No Hx Hypertension: No Hx Pacemaker: No Hx Asthma: No Hx COPD: No Hx Diabetes: No Hx Dialysis: No Hx Neurological Problems: No Hx Cerebrovascular Accident: No Hx Seizures: No Review of Systems All Other Systems: negative except mentioned in HPI Physical Exam Vital Signs Date Time Temp Pulse Resp B/P (MAP) Pulse Ox O2 Delivery O2 Flow Rate FiO2 10/30/17 22:54 97.7 86 18 155/93 98 Room Air 97.7 Sp02 EP Interpretation: reviewed, normal General Appearance: normal inspection, well appearing, no apparent distress, alert, GCS 15 Head: atraumatic ENT: normal ENT inspection, hearing grossly normal, normal voice Neck: normal inspection, full range of motion, supple, no bony tend Respiratory: normal inspection, lungs clear, normal breath sounds, no respiratory distress, no retraction, no wheezing Cardiovascular #1: regular rate, rhythm, no edema Gastrointestinal: normal inspection, normal bowel sounds, non tender, soft, no guarding, hernia Genitourinary: no CVA tenderness Musculoskeletal: normal inspection, back normal, normal range of motion Neurologic: normal inspection, alert, responsive, speech normal Psychiatric: normal inspection, judgement/insight normal, mood/affect normal Skin: normal inspection, normal color, no rash Medical Decision Making Diagnostic Impression: Primary Impression: Bell catheter problem ER Course Patient presented for Bell catheter pain. Differential diagnosis included wasn 't limited to Bell catheter obstruction, urinary tract infection, inguinal hernia, bowel obstruction among others. Patient has a benign exam and does not appear to require any further imaging or laboratory testing at this time. The patient's Bell catheter was changes are noted have good urine output. The patient's hernia was reduced with the light manual pressure. The patient was given protrusion for Keflex for likely urinary infection. The patient is advised to follow up with primary care doctor in 1-2 days. Patient is advised to return if any worsening condition or if any changes in status that are concerning. This report is dictated with My e[employer]hoe kiss setter hand software which may occasionally lead to discrepancies related to use of this software. Last Vital Signs Date Time Temp Pulse Resp B/P (MAP) Pulse Ox O2 Delivery O2 Flow Rate FiO2 10/31/17 00:12 98.0 73 16 134/68 97 Room Air 98.0 Status: improved Disposition: HOME, SELF-CARE Condition: Stable Scripts Cephalexin* (KEFLEX*) 500 Mg Capsule 500 MG ORAL EVERY 6 HOURS, #28 CAP Prov: Simone Yi MD 10/30/17 Referrals: NOT CHOSEN [facility]/,REFERRING (PCP) Patient Instructions: Bell Catheter Care, Adult Simone Yi MD Oct 31, 2017 00:49
== END 2017-10-31 00:12 | disposition home or self-care (01) ==
LOC: EMR 23:30
DX: T83.84XA Pain due to genitourinary prosthetic devices, implants and grafts, initial encounter (principal); Y84.6 Urinary catheterization as the cause of abnormal reaction of the patient, or of later complication, without mention of misadventure at the time of the procedure; Y92.9 Unspecified place or not applicable
CPT/HCPCS: 99283

== ENCOUNTER 2017-11-08 16:12 | Emergency (ER) | payer MEDICARE, OTHER ==
[~2017-11-08] VITALS: Ht 175.3 cm; Wt 78.0 kg
[2017-11-08 16:50] VITALS: BP 156/78
[2017-11-08] MEDS ORDERED: BACTRIM DS TAB1 EAC1 ORAL (17:29)
--- NOTE | 2017-11-08 17:48 | Emergency Room Report ---
History of Present Illness General Chief Complaint: Male Urogenital Problems Source: Patient Present Illness HPI 77-year-old male presents ED for Adrian catheter placement. States he's had this catheter for some time now needed to be replaced because it is clogged. Started today around 11 AM. Denies any fevers or chills. Denies any flank pain. Denies any nausea or vomiting. No other aggravating relieving factors. Denies any other associated symptoms Allergies: Coded Allergies: No Known Allergies (Unverified , 03/01/14) Patient History Past Medical History: none Past Surgical History: none Pertinent Family History: none Social History: Denies: smoking, alcohol use, drug use Immunizations: UTD Reviewed Nursing Documentation: PMH: Agreed; PSxH: Agreed Nursing Documentation-PMH Hx Cardiac Problems: No Hx Hypertension: No Hx Pacemaker: No Hx Asthma: No Hx COPD: No Hx Diabetes: No Hx Dialysis: No Hx Neurological Problems: No Hx Cerebrovascular Accident: No Hx Seizures: No Review of Systems All Other Systems: negative except mentioned in HPI Physical Exam Vital Signs Date Time Temp Pulse Resp B/P (MAP) Pulse Ox O2 Delivery O2 Flow Rate FiO2 11/08/17 16:20 97.2 3 20 177/79 94 Room Air 97.2 Sp02 EP Interpretation: reviewed, normal General Appearance: no apparent distress, alert, GCS 15, non-toxic Head: normocephalic, atraumatic Eyes: bilateral eye normal inspection, bilateral eye PERRL ENT: hearing grossly normal, normal pharynx, no angioedema, normal voice Neck: full range of motion, supple/symm/no masses Respiratory: chest non-tender, lungs clear, normal breath sounds, speaking full sentences Cardiovascular #1: regular rate, rhythm, no edema Cardiovascular #2: 2+ carotid (R), 2+ carotid (L), 2+ radial (R), 2+ radial (L) , 2+ dorsalis pedis (R), 2+ dorsalis pedis (L) Gastrointestinal: normal bowel sounds, non tender, soft, non-distended, no guarding, no rebound Rectal: deferred Genitourinary: normal inspection, no CVA tenderness Musculoskeletal: back normal, gait/station normal, normal range of motion, non- tender Neurologic: alert, oriented x3, responsive, motor strength/tone normal, sensory intact, speech normal Psychiatric: judgement/insight normal, memory normal, mood/affect normal, no suicidal/homicidal ideation Reflexes: 3+ bicep (R), 3+ bicep (L), 3+ tricep (R), 3+ tricep (L), 3+ knee (R) , 3+ knee (L) Skin: normal color, no rash, warm/dry, well hydrated Lymphatic: no adenopathy Medical Decision Making Diagnostic Impression: Primary Impression: Complication, blocked Adrian catheter Qualified Codes: T83.091A - Other mechanical complication of indwelling urethral catheter, initial encounter ER Course Hospital Course 77 yo M presents with blocked adrian catheter. Differential diagnoses include: obstruction, UTI, BPH Clinical course Patient placed on stretcher. After initial history and physical we replaced adrian cather with immediate relief of obstruction Patient states he has a urologist that he follows up with. Does not want any referrals. Patient safe for discharge Diagnosis - blocked adrian catheter Stable and discharged home with adrian + leg bag. Instructed to followup with PMD/urologist. Return to ED if symptoms recur or worsen Last Vital Signs Date Time Temp Pulse Resp B/P (MAP) Pulse Ox O2 Delivery O2 Flow Rate FiO2 11/08/17 16:20 97.2 3 20 177/79 94 Room Air 97.2 Status: improved Disposition: HOME, SELF-CARE Condition: Stable Scripts Trimethoprim/Sulfamethoxazole 160/800* (BACTRIM DS TABLET*) 1 Each Tablet 1 TAB ORAL Q12H, #14 TAB 0 Refills Prov: Huy Khoury MD 11/08/17 Referrals: NOT CHOSEN [facility]/,REFERRING (PCP) Patient Instructions: Adrian Catheter Care, Adult, [id number] Huy Khoury MD Nov 08, 2017 17:48
[2017-11-08 18:10] VITALS: BP 153/72
== END 2017-11-08 18:20 | disposition home or self-care (01) ==
LOC: EMR 16:35
DX: T83.091A Other mechanical complication of indwelling urethral catheter, initial encounter (principal); Y84.6 Urinary catheterization as the cause of abnormal reaction of the patient, or of later complication, without mention of misadventure at the time of the procedure; Y92.9 Unspecified place or not applicable
CPT/HCPCS: 99283

== ENCOUNTER 2017-11-16 15:08 | Emergency (ER) | payer MEDICARE, OTHER ==
[~2017-11-16] VITALS: Ht 177.8 cm; Wt 63.5 kg
--- NOTE | 2017-11-16 16:46 | Emergency Room Report ---
History of Present Illness General Chief Complaint: General Complaint Source: Patient Present Illness HPI Mr. Espinal is a pleasant 77-year-old male who presents with Adrian obstruction. He's had severe suprapubic discomfort for the last 3 hours. Sudden onset at 11 am due to infection, he has recurrent urinary obstruction. He has had a catheter in place for 4 months. He has urology appointment this week. He is followed by the [place] Allergies: Coded Allergies: No Known Allergies (Unverified , 03/01/14) Patient History Past Medical History: other - inguinal hernia Past Surgical History: none Social History: Denies: smoking, alcohol use Social History Narrative retired, lives with brother Nursing Documentation-[facility] Past Medical History: No History, Except For Hx Cardiac Problems: No Hx Hypertension: No Hx Pacemaker: No Hx Asthma: No Hx COPD: No Hx Diabetes: No Hx Dialysis: No Hx Neurological Problems: No Hx Cerebrovascular Accident: No Hx Seizures: No Review of Systems Constitutional: Denies: fever, malaise Respiratory: Denies: cough Cardiovascular: Denies: chest pain Gastrointestinal: Reports: abdominal pain All Other Systems: negative except mentioned in HPI Physical Exam Vital Signs Date Time Temp Pulse Resp B/P (MAP) Pulse Ox O2 Delivery O2 Flow Rate FiO2 11/16/17 15:15 97.7 102 18 155/78 96 Room Air 97.7 Sp02 EP Interpretation: reviewed, normal General Appearance: no apparent distress, alert, GCS 15, non-toxic, severe distress - crying out in severe pain Head: normocephalic, atraumatic Eyes: bilateral eye normal inspection ENT: hearing grossly normal, normal pharynx, no angioedema, normal voice Neck: full range of motion, supple/symm/no masses Respiratory: chest non-tender, lungs clear, normal breath sounds, speaking full sentences Cardiovascular #1: regular rate, rhythm, no edema Gastrointestinal: normal bowel sounds, non tender, soft, no guarding, no rebound, distended - suprapubic. Distention right soft inguinal hernia Rectal: deferred Genitourinary: normal inspection, no CVA tenderness Musculoskeletal: back normal, gait/station normal, normal range of motion, non- tender, calf tenderness Neurologic: alert, oriented x3, responsive, motor strength/tone normal, sensory intact, speech normal Psychiatric: judgement/insight normal, memory normal, mood/affect normal Skin: normal color, no rash, warm/dry, well hydrated Medical Decision Making Diagnostic Impression: Primary Impression: Acute urinary obstruction Additional Impression: Complication, blocked Adrian catheter ER Course Mr. Gomez presents with acute urinary retention due to blocked adrian catheter with contained a severe mount of sediment residue. He has follow-up with urology this week I assisted with Adrian catheter placement. Symptoms resolved after urine expressed. Last Vital Signs Date Time Temp Pulse Resp B/P (MAP) Pulse Ox O2 Delivery O2 Flow Rate FiO2 11/16/17 15:15 97.7 102 18 155/78 96 Room Air 97.7 Disposition: HOME, SELF-CARE Condition: Stable VINCENTFIFIA Nov 16, 2017 16:46
[2017-11-16] MEDS ORDERED: TAMSULOSIN HCL0.4 MG ORAL (16:52)
[2017-11-16 17:10] VITALS: BP 140/80
== END 2017-11-16 17:15 | disposition home or self-care (01) ==
LOC: EMR 16:04
DX: T83.098A Other mechanical complication of other urinary catheter, initial encounter (principal); R33.9 Retention of urine, unspecified; Y84.6 Urinary catheterization as the cause of abnormal reaction of the patient, or of later complication, without mention of misadventure at the time of the procedure; Y92.9 Unspecified place or not applicable
CPT/HCPCS: 99283

== ENCOUNTER 2017-12-17 16:15 | Emergency (ER) | payer MEDICARE, OTHER ==
[~2017-12-17] VITALS: Ht 175.3 cm; Wt 78.0 kg
[2017-12-17 17:19] VITALS: BP 157/83
[2017-12-17 17:46] VITALS: BP 157/83
--- NOTE | 2017-12-17 23:28 | Emergency Room Report ---
History of Present Illness General Chief Complaint: Male Urogenital Problems Source: Patient Present Illness HPI 77-year-old male presents ED for Adrian catheter change. History of BPH. States catheter was placed approximately 2 weeks ago. [facility] with [facility] and timely fashion. Denies pain. Denies fevers or chills. States catheter is clogged. Denies flank pain. No other aggravating relieving factors. Denies any other associated symptoms Allergies: Coded Allergies: No Known Allergies (Unverified , 03/01/14) Patient History Past Medical History: none Past Surgical History: none Pertinent Family History: none Social History: Denies: smoking, alcohol use, drug use Immunizations: UTD Reviewed Nursing Documentation: PMH: Agreed; PSxH: Agreed Nursing Documentation-PMH Hx Cardiac Problems: No Hx Hypertension: Yes Hx Pacemaker: No Hx Asthma: No Hx COPD: No Hx Diabetes: No Hx Dialysis: No Hx Neurological Problems: No Hx Cerebrovascular Accident: No Hx Seizures: No Review of Systems All Other Systems: negative except mentioned in HPI Physical Exam Vital Signs Date Time Temp Pulse Resp B/P (MAP) Pulse Ox O2 Delivery O2 Flow Rate FiO2 12/17/17 16:19 97.9 99 18 169/82 100 Room Air 97.9 Sp02 EP Interpretation: reviewed, normal General Appearance: no apparent distress, alert, GCS 15, non-toxic Head: normocephalic, atraumatic Eyes: bilateral eye normal inspection, bilateral eye PERRL ENT: hearing grossly normal, normal pharynx, no angioedema, normal voice Neck: full range of motion, supple/symm/no masses Respiratory: chest non-tender, lungs clear, normal breath sounds, speaking full sentences Cardiovascular #1: regular rate, rhythm, no edema Cardiovascular #2: 2+ carotid (R), 2+ carotid (L), 2+ radial (R), 2+ radial (L) , 2+ dorsalis pedis (R), 2+ dorsalis pedis (L) Gastrointestinal: normal bowel sounds, non tender, soft, non-distended, no guarding, no rebound Rectal: deferred Genitourinary: normal inspection, no CVA tenderness, other - adrian catheter in place Musculoskeletal: back normal, gait/station normal, normal range of motion, non- tender Neurologic: alert, oriented x3, responsive, motor strength/tone normal, sensory intact, speech normal Psychiatric: judgement/insight normal, memory normal, mood/affect normal, no suicidal/homicidal ideation Reflexes: 3+ bicep (R), 3+ bicep (L), 3+ tricep (R), 3+ tricep (L), 3+ knee (R) , 3+ knee (L) Skin: normal color, no rash, warm/dry, well hydrated Lymphatic: no adenopathy Medical Decision Making Diagnostic Impression: Primary Impression: Adrian catheter problem Qualified Codes: T83.9XXA - Unspecified complication of genitourinary prosthetic device, implant and graft, initial encounter ER Course Hospital Course 77-year-old M presents to ED complaining of urinary retention. has adrian catheter Differential diagnoses include: obstruction, UTI, BPH Clinical course Patient placed on stretcher. After initial history and physical we replaced adrian catheter I offered to provide urology referral but patient declined stating that he wants to go through the [facility] Diagnosis - adrian catheter problem Stable and discharged home with adrain + leg bag. Instructed to followup with PMD/urologist. Return to ED if symptoms recur or worsen Last Vital Signs Date Time Temp Pulse Resp B/P (MAP) Pulse Ox O2 Delivery O2 Flow Rate FiO2 12/17/17 17:46 97.9 84 18 157/83 99 Room Air 97.9 Status: improved Disposition: HOME, SELF-CARE Condition: Stable Referrals: NOT CHOSEN [facility]/,REFERRING (PCP) Patient Instructions: Adrian Catheter Care, Adult, [id number] Huy Khoury MD Dec 17, 2017 23:28
== END 2017-12-17 17:46 | disposition home or self-care (01) ==
LOC: EMR 17:26
DX: T83.098A Other mechanical complication of other urinary catheter, initial encounter (principal); Y84.6 Urinary catheterization as the cause of abnormal reaction of the patient, or of later complication, without mention of misadventure at the time of the procedure; Y92.009 Unspecified place in unspecified non-institutional (private) residence as the place of occurrence of the external cause; R33.9 Retention of urine, unspecified
CPT/HCPCS: 99282

== ENCOUNTER 2018-01-03 16:02 | Emergency (ER) | payer MEDICARE, OTHER ==
[~2018-01-03] VITALS: Ht 175.3 cm; Wt 78.0 kg
[2018-01-03 16:32] VITALS: BP 188/88
--- NOTE | 2018-01-03 16:41 | Emergency Room Report ---
History of Present Illness General Chief Complaint: Male Urogenital Problems Source: Patient Present Illness HPI 77year-old male patient presents ER complaining of full catheter problem. States that has not been drinking for the past few hours with no patient feels he "needs to urinate. Denies fever, chest pain or shortness breath, abdominal pain, flank pain. reports history of right-sided inguinal hernia, states that he is scheduled to have it repaired on of next week. Reports catheter having draining fine prior to today, last replaced a few weeks ago. reports history of "borderline" BPH, not taking any medications. Patient seen at this ER multiple times for similar problems in the past. Denies fever, chest pain, SOB. Allergies: Coded Allergies: No Known Allergies (Unverified , 03/01/14) Patient History Past Medical History: see triage record Reviewed Nursing Documentation: PMH: Agreed; PSxH: Agreed Nursing Documentation-PMH Past Medical History: No History, Except For Hx Cardiac Problems: No Hx Hypertension: Yes Hx Pacemaker: No Hx Asthma: No Hx COPD: No Hx Diabetes: No Hx Dialysis: No Hx Neurological Problems: No Hx Cerebrovascular Accident: No Hx Seizures: No Review of Systems All Other Systems: negative except mentioned in HPI Physical Exam Vital Signs Date Time Temp Pulse Resp B/P (MAP) Pulse Ox O2 Delivery O2 Flow Rate FiO2 01/03/18 16:21 97.5 99 18 188/88 98 Room Air 97.5 Sp02 EP Interpretation: reviewed, normal General Appearance: well appearing, no apparent distress, alert, GCS 15, non- toxic Head: normocephalic, atraumatic Eyes: bilateral eye normal inspection, bilateral eye PERRL ENT: hearing grossly normal, normal pharynx, no angioedema, normal voice, uvula midline, moist mucus membranes Neck: full range of motion Respiratory: lungs clear, normal breath sounds, no rhonchi, no respiratory distress, no accessory muscle use, no wheezing, speaking full sentences Cardiovascular #1: regular rate, rhythm, no edema Genitourinary: no CVA tenderness, penis normal, other - Bell catheter placed Musculoskeletal: back normal, digits/nails normal, gait/station normal, normal range of motion, non-tender Neurologic: alert, oriented x3, responsive, motor strength/tone normal, sensory intact Skin: no rash Medical Decision Making PA Attestation Dr. Philip is my supervising Physician whom patient management has been discussed with. Diagnostic Impression: Primary Impression: Bell catheter problem Additional Impression: UTI (urinary tract infection) ER Course Pt. presents to the ED c/o difficulty urinating due to fully catheter not draining. Ddx considered but are not limited to UTI, BPH, urinary obstruction, Bell catheter problem Vital signs: are WNL, pt. is afebrile Blood pressure mildly elevated at this time, will continue to monitor. Denies chest pain, shortness of breath, vision changes, does not require acute intervention at ER at this time. Follow with primary care provider discuss further treatment and referral. Advised on low-sodium diet, advised on diet and exercise. ER COURSE: replace Bell catheter on the ER. Instructed patient to follow-up with primary care provider and get referral to urology. UA shows positive nitrites, likely UTI, will provide patient with Bactrim, checked previous urine cultures for susceptibility testing. Drink plenty of fluids. Patient reports feeling better following catheter replacement. 600ml urine drained, patient reports symptoms improved. Follow-up with surgeon as scheduled appointment for hernia repair. ER precautions given, patient stable and discharged home with Bell catheter replaced. Followup with urology. DISCHARGE: Rx provided for Bactrim At this time pt is stable for d/c to home. Patient is resting comfortably, in no acute distress, nontoxic appearing, talking without difficulty. Patient to take medications as instructed Will provide with patient care instructions and any necessary prescriptions. Care plan and follow-up instructions provided. Patient instructed to follow-up with primary care provider in 3 - 5 days. Patient questions asked and answered. Patient reports understanding and agreement to treatment plan. ER precautions given. Patient instructed to return to ER immediately for any new or worsening of symptoms including but not limited to increasing SOB, persistent fever, chest pain, intractable vomiting. - Please note that this Emergency Department Report was dictated using [employer] grading supervisor technology software, occasionally this can lead to erroneous entry secondary to interpretation by the dictation equipment. Labs Test 01/03/18 16:55 Urine Color Pale yellow Urine Appearance Cloudy Urine pH 8 (4.5-8.0) Urine Specific Gleason 1.010 (1.005-1.035) Urine Protein 3+ (NEGATIVE) Urine Glucose (UA) Negative (NEGATIVE) Urine Ketones Negative (NEGATIVE) Urine Blood 5+ (NEGATIVE) Urine Nitrite Positive (NEGATIVE) Urine Bilirubin Negative (NEGATIVE) Urine Urobilinogen Normal MG/DL (0.0-1.0) Urine Leukocyte Esterase 3+ (NEGATIVE) Urine RBC 20-30 /HPF (0 - 0) Urine WBC 15-20 /HPF (0 - 0) Urine Squamous Epithelial Cells Occasional /LPF Urine Bacteria Many /HPF (NONE) Last Vital Signs Date Time Temp Pulse Resp B/P (MAP) Pulse Ox O2 Delivery O2 Flow Rate FiO2 01/03/18 16:32 97.5 99 18 188/88 98 Room Air 97.5 Disposition: HOME, SELF-CARE Condition: Stable Scripts Trimethoprim/Sulfamethoxazole 160/800* (BACTRIM DS TABLET*) 1 Each Tablet 1 TAB ORAL TWICE A DAY, #14 TAB Prov: Raffy Cunningham 01/03/18 Patient Instructions: Benign Prostatic Hyperplasia, Bell Catheter Care, Adult , [id number], Urinary Tract Infection Additional Instructions: Followup with primary care provider in 3 -5 days. Take medications as directed. Patient questions asked and answered. ER precautions given, patient instructed to return to ER immediately for any new or worsening of symptoms. Raffy Cunningham Jan 03, 2018 16:41
[2018-01-03 17:00] LABS: APPEARANCE,URINE CLOUDY; BILIRUBIN, URINE NEGATIVE (NEGATIVE); COLOR,URINE PALE YELLOW; GLUCOSE, URINE (UA) NEGATIVE (NEGATIVE); KETONES,URINE NEGATIVE (NEGATIVE); LEUKOCYTE ESTERASE ,URINE 3+ (NEGATIVE); NITRITE,URINE POSITIVE (NEGATIVE); PH,URINE 8 (4.5-8.0); PROTEIN,URINE 3+ (NEGATIVE); UROBILINOGEN,URINE NORMAL MG/DL (0.0-1.0)
[2018-01-03] MEDS ORDERED: BACTRIM DS TAB1 EAC1 ORAL (17:14)
[2018-01-03 17:16] VITALS: BP 160/78
== END 2018-01-03 17:22 | disposition home or self-care (01) ==
LOC: EMR 16:35
DX: T83.098A Other mechanical complication of other urinary catheter, initial encounter (principal); Y84.6 Urinary catheterization as the cause of abnormal reaction of the patient, or of later complication, without mention of misadventure at the time of the procedure; Y92.9 Unspecified place or not applicable; N39.0 Urinary tract infection, site not specified; I10 Essential (primary) hypertension
CPT/HCPCS: 51702; 81003; 87086; 87181; 99284

== ENCOUNTER 2018-02-26 14:18 | Emergency (ER) | payer MEDICARE, OTHER ==
[~2018-02-26] VITALS: Ht 175.3 cm; Wt 78.0 kg
--- NOTE | 2018-02-26 14:49 | Emergency Room Report ---
History of Present Illness General Chief Complaint: Male Urogenital Problems Source: Patient Present Illness HPI 77-year-old male patient presents ER requesting Bell catheter placement. Reports his Bell fell out earlier today. Reports has been unable to urinate for the past few hours, states pain symptoms beginning to present. patient denies dysuria, hematuria. Denies fever, chest pain, shortness breath, abdominal pain, vomiting, flank pain. Patient previously seen at this ER multiple times for similar symptoms in the past. Allergies: Coded Allergies: No Known Allergies (Unverified , 03/01/14) Patient History Past Medical History: see triage record Reviewed Nursing Documentation: PMH: Agreed; PSxH: Agreed Nursing Documentation-PMH Past Medical History: No History, Except For Hx Cardiac Problems: No Hx Hypertension: Yes Hx Pacemaker: No Hx Asthma: No Hx COPD: No Hx Diabetes: No Hx Dialysis: No Hx Neurological Problems: No Hx Cerebrovascular Accident: No Hx Seizures: No Review of Systems All Other Systems: negative except mentioned in HPI Physical Exam Vital Signs Date Time Temp Pulse Resp B/P (MAP) Pulse Ox O2 Delivery O2 Flow Rate FiO2 02/26/18 14:23 97.3 109 18 150/81 99 Room Air Sp02 EP Interpretation: reviewed, normal General Appearance: well appearing, no apparent distress, alert, GCS 15, non- toxic Head: normocephalic, atraumatic Eyes: bilateral eye normal inspection, bilateral eye PERRL ENT: hearing grossly normal, normal pharynx, no angioedema, normal voice, uvula midline, moist mucus membranes Neck: full range of motion Respiratory: lungs clear, normal breath sounds, no rhonchi, no respiratory distress, no accessory muscle use, no wheezing, speaking full sentences Cardiovascular #1: regular rate, rhythm, no edema Genitourinary: no CVA tenderness Musculoskeletal: back normal, digits/nails normal, gait/station normal, normal range of motion, non-tender, other - Bell placed Neurologic: alert, oriented x3, responsive, motor strength/tone normal, sensory intact Psychiatric: mood/affect normal Skin: no rash Medical Decision Making PA Attestation Dr. Yi is my supervising Physician whom patient management has been discussed with. Diagnostic Impression: Primary Impression: Bell catheter problem ER Course Pt. presents to the ED c/o difficulty urinating due to fully catheter not draining. Ddx considered but are not limited to UTI, BPH, urinary obstruction, Bell catheter problem Vital signs: are WNL, pt. is afebrile ER COURSE: replace Bell catheter in the ER. Instructed patient to follow-up with primary care provider and get referral to urology. UA shows few wbc's, nitrite positive, nitrates previously positive likely due to colonization, patient denies dysuria, hematuria, does not require antibiotic treatment at this time. 900ccs of urine were drained. Patient reports feeling better following catheter replacement. ER precautions given, patient stable and discharged home with Bell catheter replaced. Followup with urology. DISCHARGE: At this time pt is stable for d/c to home. Patient is resting comfortably, in no acute distress, nontoxic appearing, talking without difficulty. Patient to take medications as instructed Will provide with patient care instructions and any necessary prescriptions. Care plan and follow-up instructions provided. Patient instructed to follow-up with primary care provider in 3 - 5 days. Patient questions asked and answered. Patient reports understanding and agreement to treatment plan. ER precautions given. Patient instructed to return to ER immediately for any new or worsening of symptoms including but not limited to increasing SOB, persistent fever, chest pain, intractable vomiting. - Please note that this Emergency Department Report was dictated using [employer] business [employer] technology software, occasionally this can lead to erroneous entry secondary to interpretation by the dictation equipment. Labs Test 02/26/18 14:50 Urine Color Pale yellow Urine Appearance Slightly cloudy Urine pH 7 (4.5-8.0) Urine Specific [place] 1.005 (1.005-1.035) Urine Protein 1+ (NEGATIVE) Urine Glucose (UA) Negative (NEGATIVE) Urine Ketones Negative (NEGATIVE) Urine Blood 4+ (NEGATIVE) Urine Nitrite Positive (NEGATIVE) Urine Bilirubin Negative (NEGATIVE) Urine Urobilinogen Normal MG/DL (0.0-1.0) Urine Leukocyte Esterase 3+ (NEGATIVE) Urine RBC 5-10 /HPF (0 - 0) Urine WBC 2-4 /HPF (0 - 0) Urine Squamous Epithelial Cells None /LPF (NONE/OCC) Urine Amorphous Sediment Few /LPF (NONE) Urine Bacteria Few /HPF (NONE) Last Vital Signs Date Time Temp Pulse Resp B/P (MAP) Pulse Ox O2 Delivery O2 Flow Rate FiO2 02/26/18 14:23 97.3 109 18 150/81 99 Room Air Disposition: HOME, SELF-CARE Condition: Stable Patient Instructions: Bell Catheter Care, Adult Additional Instructions: Followup with primary care provider in 3 -5 days. Take medications as directed. Patient questions asked and answered. ER precautions given, patient instructed to return to ER immediately for any new or worsening of symptoms. Raffy Cunningham Feb 26, 2018 14:49
[2018-02-26 15:09] LABS: APPEARANCE,URINE SLIGHTLY CLOUDY; BILIRUBIN, URINE NEGATIVE (NEGATIVE); COLOR,URINE PALE YELLOW; GLUCOSE, URINE (UA) NEGATIVE (NEGATIVE); KETONES,URINE NEGATIVE (NEGATIVE); LEUKOCYTE ESTERASE ,URINE 3+ (NEGATIVE); NITRITE,URINE POSITIVE (NEGATIVE); PH,URINE 7 (4.5-8.0); PROTEIN,URINE 1+ (NEGATIVE); UROBILINOGEN,URINE NORMAL MG/DL (0.0-1.0)
[2018-02-26 15:21] VITALS: BP 145/78
[2018-02-26 16:01] VITALS: BP 145/78
== END 2018-02-26 16:01 | disposition home or self-care (01) ==
LOC: EMR 15:12
DX: T83.091A Other mechanical complication of indwelling urethral catheter, initial encounter (principal); Y84.6 Urinary catheterization as the cause of abnormal reaction of the patient, or of later complication, without mention of misadventure at the time of the procedure; Y92.9 Unspecified place or not applicable; I10 Essential (primary) hypertension
CPT/HCPCS: 51702; 81003; 99283

== ENCOUNTER 2018-04-04 20:10 | Emergency (ER) | payer MEDICARE, OTHER ==
[~2018-04-04] VITALS: Ht 175.3 cm; Wt 78.0 kg
[2018-04-04 20:20] VITALS: BP 146/82
[2018-04-04 21:11] VITALS: BP 140/81
--- NOTE | 2018-04-05 15:18 | Emergency Room Report ---
History of Present Illness General Chief Complaint: Male Urogenital Problems Source: Patient Present Illness HPI 77-year-old male presents ED for evaluation. Patient is here for Adrian catheter placement. Patient is well-known to [facility]. Has been here multiple times for Adrian catheter placement. History of BPH. States [facility]. States that his Adrian catheter came out 3 hours ago. Denies any pain. Denies any dysuria or criteria. Denies any flank pain. No other aggravating relieving factors. Denies any other associated symptoms Allergies: Coded Allergies: No Known Allergies (Unverified , 03/01/14) Patient History Past Medical History: HTN Past Surgical History: none Pertinent Family History: none Social History: Denies: smoking, alcohol use, drug use Immunizations: UTD Reviewed Nursing Documentation: PMH: Agreed; PSxH: Agreed Nursing Documentation-PMH Past Medical History: No Stated History Hx Cardiac Problems: No Hx Hypertension: Yes Hx Pacemaker: No Hx Asthma: No Hx COPD: No Hx Diabetes: No Hx Dialysis: No Hx Neurological Problems: No Hx Cerebrovascular Accident: No Hx Seizures: No Review of Systems All Other Systems: negative except mentioned in HPI Physical Exam Vital Signs Date Time Temp Pulse Resp B/P (MAP) Pulse Ox O2 Delivery O2 Flow Rate FiO2 04/04/18 20:16 98.2 87 16 146/82 99 Room Air Sp02 EP Interpretation: reviewed, normal General Appearance: no apparent distress, alert, GCS 15, non-toxic Head: normocephalic, atraumatic Eyes: bilateral eye normal inspection, bilateral eye PERRL ENT: hearing grossly normal, normal pharynx, no angioedema, normal voice Neck: full range of motion, supple/symm/no masses Respiratory: chest non-tender, lungs clear, normal breath sounds, speaking full sentences Cardiovascular #1: regular rate, rhythm, no edema Cardiovascular #2: 2+ carotid (R), 2+ carotid (L), 2+ radial (R), 2+ radial (L) , 2+ dorsalis pedis (R), 2+ dorsalis pedis (L) Gastrointestinal: normal bowel sounds, non tender, soft, non-distended, no guarding, no rebound Rectal: deferred Genitourinary: normal inspection, no CVA tenderness Musculoskeletal: back normal, gait/station normal, normal range of motion, non- tender Neurologic: alert, oriented x3, responsive, motor strength/tone normal, sensory intact, speech normal Psychiatric: judgement/insight normal, memory normal, mood/affect normal, no suicidal/homicidal ideation Reflexes: 3+ bicep (R), 3+ bicep (L), 3+ tricep (R), 3+ tricep (L), 3+ knee (R) , 3+ knee (L) Skin: normal color, no rash, warm/dry, well hydrated Lymphatic: no adenopathy Medical Decision Making Diagnostic Impression: Primary Impression: Dislodged Adrian catheter Qualified Codes: T83.021A - Displacement of indwelling urethral catheter, initial encounter ER Course Hospital Course 77-year-old M presents to ED complaining of urinary retention. adrian catheter fell out today Differential diagnoses include: obstruction, UTI, BPH Clinical course Patient placed on stretcher. After initial history and physical I ordered adrian cather with immediate relief of obstruction Diagnosis - dislodged adrian catheter Stable and discharged home with adrian + leg bag. Instructed to followup with PMD/urologist. Return to ED if symptoms recur or worsen Last Vital Signs Date Time Temp Pulse Resp B/P (MAP) Pulse Ox O2 Delivery O2 Flow Rate FiO2 04/04/18 21:11 98.2 70 16 140/81 99 Room Air Status: improved Disposition: HOME, SELF-CARE Condition: Stable Referrals: Carlos Leo M.D. Patient Instructions: Adrian Catheter Care, Adult, [id number] Huy Khoury MD Apr 05, 2018 15:18
== END 2018-04-04 21:21 | disposition home or self-care (01) ==
LOC: EMR 20:46
DX: T83.021A Displacement of indwelling urethral catheter, initial encounter (principal); N40.0 Benign prostatic hyperplasia without lower urinary tract symptoms; I10 Essential (primary) hypertension
CPT/HCPCS: 99282

== ENCOUNTER 2018-05-26 16:00 | Emergency (ER) | payer MEDICARE, OTHER ==
[~2018-05-26] VITALS: Ht 175.3 cm; Wt 78.0 kg
--- NOTE | 2018-05-26 16:20 | NUR ---
ED Nurse Note: pt came in for adrian change, pt reports pain 8/10 on low abd area. ERMD aware, pt adrian changed per ERMD order 16 fr, 10 cc NS inserted, 30cc urine returned. will cont monitor.
[2018-05-26] MEDS ORDERED: UNOBMED (16:21)
--- NOTE | 2018-05-26 16:40 | NUR ---
ED Nurse Note: urine 800mL total in bag. yellow. pt denies pain now reports relief.
[2018-05-26 16:51] VITALS: BP 153/79
[2018-05-26] MEDS ORDERED: COLACE100 MG ORAL (16:54)
[2018-05-26 17:06] VITALS: BP 155/87
--- NOTE | 2018-05-26 17:06 | NUR ---
ED Nurse Note: pt cleared to be d/c per ERMD, pt discharge/aftercare instruction provided w/ prescription, pt education done via discussion and hand out, pt verbalized understanding and agrees with plan, pt advised to return to ed if sx worsen or new sx develop, pt advised to follow up with pcp and continue care. Pt VSS, resp even and unlabored on RA, adrian intact, all belongings left with pt. pt ambulatory w/ steady gait.
--- NOTE | 2018-05-26 19:26 | Emergency Room Report ---
History of Present Illness General Chief Complaint: Male Urogenital Problems Source: Patient Present Illness HPI Patient is a 77-year-old male who presented after increased urinary retention. Patient had prior history of chronic Bell catheter use. He was noted to have decreased urine output after Bell became obstructed. Denies any fever. Patient has multiple ER visits for similar symptoms. Patient denies any vomiting. He reports having some increasing constipation recently. Patient had prior history of a right inguinal hernia. He denies any current abdominal pain or vomiting. Allergies: Coded Allergies: No Known Allergies (Unverified , 05/26/18) Patient History Past Medical History: see triage record Reviewed Nursing Documentation: PMH: Agreed; PSxH: Agreed Nursing Documentation-PMH Past Medical History: No History, Except For Hx Cardiac Problems: No Hx Hypertension: Yes Hx Pacemaker: No Hx Asthma: No Hx COPD: No Hx Diabetes: No Hx Dialysis: No Hx Neurological Problems: No Hx Cerebrovascular Accident: No Hx Seizures: No Review of Systems All Other Systems: negative except mentioned in HPI Physical Exam Vital Signs Date Time Temp Pulse Resp B/P (MAP) Pulse Ox O2 Delivery O2 Flow Rate FiO2 05/26/18 16:18 98.2 92 16 213/92 99 Room Air General Appearance: well appearing, no apparent distress, alert, GCS 15 Head: normocephalic, atraumatic ENT: hearing grossly normal, normal voice Neck: full range of motion, supple Respiratory: no respiratory distress, speaking full sentences Gastrointestinal: normal inspection, non tender, soft, hernia - right inguinal hernia, reducible Neurologic: normal inspection, alert, oriented x3, normal gait Psychiatric: mood/affect normal Skin: no rash Medical Decision Making Diagnostic Impression: Primary Impression: Bell catheter problem Additional Impression: Inguinal hernia of right side without obstruction or gangrene ER Course Patient presented for catheter obstruction. Differential diagnosis include was not limited to urinary tract infection, Bell catheter malfunction, incarcerated hernia among others. Patient has a benign exam and does not appear to require any further imaging or laboratory testing at this time. Hernia was noted to be easily reducible. Patient was noted to have improvement in symptoms after Bell catheter was changed. Patient was advised to follow-up with his urologist. Last Vital Signs Date Time Temp Pulse Resp B/P (MAP) Pulse Ox O2 Delivery O2 Flow Rate FiO2 05/26/18 16:51 98.7 86 18 153/79 100 Room Air Status: improved Disposition: HOME, SELF-CARE Condition: Stable Scripts Docusate Sodium* (COLACE*) 100 Mg Capsule 100 MG ORAL TWICE A DAY, #20 CAP Prov: Simone Yi MD 05/26/18 Referrals: NOT CHOSEN [facility]/,REFERRING (PCP) Patient Instructions: Bell Catheter Care, Adult, Inguinal Hernia, Adult Simone Yi MD May 26, 2018 19:26
== END 2018-05-26 17:06 | disposition home or self-care (01) ==
LOC: EMR 16:50
DX: T83.098A Other mechanical complication of other urinary catheter, initial encounter (principal); Y84.6 Urinary catheterization as the cause of abnormal reaction of the patient, or of later complication, without mention of misadventure at the time of the procedure; Y92.009 Unspecified place in unspecified non-institutional (private) residence as the place of occurrence of the external cause; K40.90 Unilateral inguinal hernia, without obstruction or gangrene, not specified as recurrent; I10 Essential (primary) hypertension; R33.9 Retention of urine, unspecified
CPT/HCPCS: 51702; 99284

== ENCOUNTER 2018-06-20 15:10 | Emergency (ER) | payer MEDICARE, OTHER ==
[~2018-06-20] VITALS: Ht 175.3 cm; Wt 77.1 kg
[~2018-06-20 15:10] MED LIST changes: +COLACE100 MG ORAL
[2018-06-20 15:20] VITALS: BP 158/81
--- NOTE | 2018-06-20 15:20 | NUR ---
ED Nurse Note: received verbal order from ERPA to exchange adrian catheter. Adrian catheter 16Fr inserted and changed into leg bag per pt's request. Total of 700ml of urine output, notified NUPUR.
--- NOTE | 2018-06-20 15:21 | NUR ---
ED Nurse Note: Ambulated in to ER due to adrian replacement. Per pt, his PCP recommended him to replace adrian every month.
--- NOTE | 2018-06-20 15:25 | Emergency Room Report ---
History of Present Illness General Chief Complaint: Male Urogenital Problems Source: Patient (Raffy Cunningham) Present Illness HPI 77-year-old male patient presents the ER complaining of Bell catheter problem. Patient is previously been seen here multiple times. Reports Bell catheter stopped working this morning. Reports a strong urge to urinate. Denies fever, chest pain or shortness of breath, abdominal pain, vomiting. Reports has follow -up with urologist next week. Denies dysuria or penile discharge prior to Bell catheter problem this morning. Denies other aggravating or relieving factors. Reports history of inguinal hernia, states has follow-up appointment with Dr. thornton surgery. Denies flank pain. (Raffy Cunningham) Allergies: Coded Allergies: No Known Allergies (Unverified , 05/26/18) Patient History Past Medical History: see triage record Reviewed Nursing Documentation: PMH: Agreed; PSxH: Agreed (Raffy Cunningham) Nursing Documentation-PMH Past Medical History: No History, Except For Hx Cardiac Problems: No Hx Hypertension: Yes Hx Pacemaker: No Hx Asthma: No Hx COPD: No Hx Diabetes: No Hx Dialysis: No Hx Neurological Problems: No Hx Cerebrovascular Accident: No Hx Seizures: No (Raffy Cunningham) Review of Systems All Other Systems: negative except mentioned in HPI (Raffy Cunningham) Physical Exam Vital Signs Date Time Temp Pulse Resp B/P (MAP) Pulse Ox O2 Delivery O2 Flow Rate FiO2 06/20/18 15:14 98.2 100 20 158/81 98 Room Air Sp02 EP Interpretation: reviewed, normal General Appearance: well appearing, no apparent distress, alert, GCS 15, non- toxic Head: normocephalic, atraumatic Eyes: bilateral eye normal inspection, bilateral eye PERRL ENT: hearing grossly normal, normal pharynx, no angioedema, normal voice, uvula midline, moist mucus membranes Neck: full range of motion Respiratory: lungs clear, normal breath sounds, no rhonchi, no respiratory distress, no accessory muscle use, no wheezing, speaking full sentences Cardiovascular #1: regular rate, rhythm, no edema Genitourinary: other - Bell in, no surrounding erythema or edema; right-sided inguinal hernia Musculoskeletal: back normal, digits/nails normal, gait/station normal, normal range of motion, non-tender Neurologic: alert, oriented x3, responsive, motor strength/tone normal, sensory intact Skin: no rash (Raffy Cunningham) Medical Decision Making PA Attestation Dr. Philip is my supervising Physician whom patient management has been discussed with. (Raffy Cunningham) Diagnostic Impression: Primary Impression: Bell catheter problem ER Course Pt. presents to the ED c/o difficulty urinating due to fully catheter not draining. Ddx considered but are not limited to UTI, BPH, urinary obstruction, Bell catheter problem Vital signs: are WNL, pt. is afebrile ER COURSE: replace Bell catheter on the ER. Instructed patient to follow-up with primary care provider and get referral to urology. Patient reports feeling better following catheter replacement. 700-ml urine drained, patient reports symptoms improved. ER precautions given, patient stable and discharged home with Bell catheter replaced. Followup with urology. Provided with contact information for general surgeon to discuss hernia. Easily reducible, not incarcerated. DISCHARGE: At this time pt is stable for d/c to home. Patient is resting comfortably, in no acute distress, nontoxic appearing, talking without difficulty. Patient to take medications as instructed Will provide with patient care instructions and any necessary prescriptions. Care plan and follow-up instructions provided. Patient instructed to follow-up with primary care provider in 3 - 5 days. Patient questions asked and answered. Patient reports understanding and agreement to treatment plan. ER precautions given. Patient instructed to return to ER immediately for any new or worsening of symptoms including but not limited to increasing SOB, persistent fever, chest pain, intractable vomiting. - Please note that this Emergency Department Report was dictated using [employer]istant facility manager technology software, occasionally this can lead to erroneous entry secondary to interpretation by the dictation equipment. (Raffy Cunningham) Last Vital Signs Date Time Temp Pulse Resp B/P (MAP) Pulse Ox O2 Delivery O2 Flow Rate FiO2 06/20/18 15:20 98.2 78 20 158/81 98 Room Air Status: improved (Raffy Cunningham) Disposition: HOME, SELF-CARE Condition: Stable Patient Instructions: Blel Catheter Care, Adult, [id number] Additional Instructions: Followup with primary care provider in 3 -5 days. Follow-up with urologist. Follow-up with general surgeon for hernia surgery Take medications as directed. Patient questions asked and answered. ER precautions given, patient instructed to return to ER immediately for any new or worsening of symptoms. Raffy Cunningham Jun 20, 2018 15:24 Mal Philip MD Jun 21, 2018 02:06
[2018-06-20 15:43] VITALS: BP 158/81
--- NOTE | 2018-06-20 15:43 | NUR ---
ED Nurse Note: Pt cleared by health care Provider for discharge. DC instructions/prescription was given and explained to pt and verbalized understanding of teachings. All medical deviecs such as ID band removed. Pt is AAO x4, ambulatory and left with all personal belongings.
== END 2018-06-20 16:00 | disposition home or self-care (01) ==
LOC: EMR 15:48
DX: T83.098A Other mechanical complication of other urinary catheter, initial encounter (principal); Y84.6 Urinary catheterization as the cause of abnormal reaction of the patient, or of later complication, without mention of misadventure at the time of the procedure; Y92.9 Unspecified place or not applicable; I10 Essential (primary) hypertension
CPT/HCPCS: 99281

== ENCOUNTER 2018-07-19 16:44 | Emergency (ER) | payer MEDICARE, OTHER ==
[~2018-07-19] VITALS: Ht 175.3 cm; Wt 78.0 kg
[2018-07-19 17:13] VITALS: BP 155/75
--- NOTE | 2018-07-19 17:15 | NUR ---
ED Nurse Note: adrian catheter needs changed, not draining since 10 am today. pt complaining of 7/10 pain. pt stated he came here to change adrian. seen by raymon. adrian catheter changed, draining well. pt able to tolerate the procedure well. will continue to monitor.
[2018-07-19 17:45] VITALS: BP 155/75
--- NOTE | 2018-07-19 17:45 | NUR ---
ER DISCHARGE NOTE: Patient is cleared to be discharged per ERMD, pt is aox4, on room air, with stable vital signs. pt was given dc and prescription instructions, pt was able to verbalize understanding, pt id band removed without complications. pt is able to ambulate with steady gait. pt took all belongings.
--- NOTE | 2018-07-19 20:31 | Emergency Room Report ---
History of Present Illness General Chief Complaint: Male Urogenital Problems Source: Patient Present Illness [facility] The patient is a 77-year-old male presenting for urinary retention. He has been seen in this emergency department numerous times for the same complaint. He has an indwelling Bell catheter for BPH and urinary retention. He states that he believes the catheter became clogged earlier today and he began to feel lower abdominal pressure. He does have a urologist in [place]. He denies other symptoms including hematuria, abdominal pain, fever, chills, back pain Allergies: Coded Allergies: No Known Allergies (Unverified , 05/26/18) Patient History Past Medical History: see triage record Pertinent Family History: none Reviewed Nursing Documentation: PMH: Agreed; PSxH: Agreed Nursing Documentation-PMH Past Medical History: No History, Except For Hx Cardiac Problems: No Hx Hypertension: Yes Hx Pacemaker: No Hx Asthma: No Hx COPD: No Hx Diabetes: No Hx Dialysis: No Hx Neurological Problems: No Hx Cerebrovascular Accident: No Hx Seizures: No Review of Systems All Other Systems: negative except mentioned in HPI Physical Exam Vital Signs Date Time Temp Pulse Resp B/P (MAP) Pulse Ox O2 Delivery O2 Flow Rate FiO2 07/19/18 16:50 99.0 91 20 155/75 95 Room Air Sp02 EP Interpretation: reviewed, normal General Appearance: no apparent distress, alert, GCS 15, non-toxic Head: normocephalic, atraumatic Gastrointestinal: normal bowel sounds, soft, non-distended, no guarding, no rebound Genitourinary: normal inspection, no CVA tenderness, penis normal Musculoskeletal: back normal, gait/station normal, normal range of motion, non- tender Neurologic: alert, oriented x3, responsive, motor strength/tone normal, sensory intact, speech normal Psychiatric: judgement/insight normal, memory normal, mood/affect normal, no suicidal/homicidal ideation Skin: normal color, no rash, warm/dry, well hydrated Medical Decision Making PA Attestation Dr. Calzada is my supervising physician. Patient management was discussed with my supervising physician Diagnostic Impression: Primary Impression: Bell catheter problem Qualified Codes: T83.9XXA - Unspecified complication of genitourinary prosthetic device, implant and graft, initial encounter ER Course The patient is a 77-year-old male presenting for urinary retention. Differential diagnosis considered but not limited to: Bell catheter malfunction , BPH, urinary retention, UTI, among others Physical exam: Afebrile. No apparent distress Abdomen is soft. There is tenderness to palpation over suprapubic region Bell catheter is in place. No gross hematuria No CVA tenderness The original Bell catheter is removed and a new Bell catheter is replaced without any complication. Urine immediately flows out and the patient feels immediate relief. The patient states that he will schedule appointment to see his urologist in [place] this week. Follow-up appointment was stressed. ER precautions are given Last Vital Signs Date Time Temp Pulse Resp B/P (MAP) Pulse Ox O2 Delivery O2 Flow Rate FiO2 07/19/18 17:45 99.0 91 20 155/75 95 Room Air Status: improved Disposition: HOME, SELF-CARE Condition: Improved Referrals: NOT CHOSEN IPA/,REFERRING (PCP) Patient Instructions: Bell Catheter Care, Adult Additional Instructions: Please follow up with urology as soon as possible as we discussed. You agreed to see the urologist within the next week. Return to emergency Department if you notice any symptoms such as urinary retention, fever, abdominal pain, or back pain MAG[facility] [place] Jul 19, 2018 20:31
== END 2018-07-19 17:45 | disposition home or self-care (01) ==
LOC: EMR 17:18
DX: T83.9XXA Unspecified complication of genitourinary prosthetic device, implant and graft, initial encounter (principal); N40.1 Benign prostatic hyperplasia with lower urinary tract symptoms; R33.8 Other retention of urine; I10 Essential (primary) hypertension; Y84.9 Medical procedure, unspecified as the cause of abnormal reaction of the patient, or of later complication, without mention of misadventure at the time of the procedure; Y92.9 Unspecified place or not applicable
CPT/HCPCS: 51702; 99284

== ENCOUNTER 2018-08-22 20:00 | Emergency (ER) | payer MEDICARE, OTHER ==
[~2018-08-22] VITALS: Ht 175.3 cm; Wt 78.5 kg
--- NOTE | 2018-08-22 20:14 | NUR ---
ED Nurse Note: Calling Pt first time but Pt is not in waiting room
--- NOTE | 2018-08-22 20:15 | NUR ---
ED Nurse Note: Patient walked in to ER c/o urine retention. Patient presentetd with adrian catheter, which was cloged up. The old cartheter was DC at 2014, and new one was placed at 2018. Patient has no other complains, AAO x4, VSS at this time, skin is dry, intact, warm to touch.
[2018-08-22 20:20] VITALS: BP 145/78
--- NOTE | 2018-08-22 20:20 | Emergency Room Report ---
History of Present Illness General Chief Complaint: Urinary retention Source: Patient Present Illness HPI Patient presents with complaints of urinary retention He has had this on multiple visits to the emergency room Reports that he is attempting outpatient follow-up over the past one day he has felt decreased output And now increased pressure in the suprapubic area Denies any fevers or chills denies any vomiting Patient reports that this is secondary to his prostate Allergies: Coded Allergies: No Known Allergies (Unverified , 05/26/18) Patient History Past Medical History: see triage record Pertinent Family History: none Reviewed Nursing Documentation: PMH: Agreed; PSxH: Agreed Nursing Documentation-PMH Hx Cardiac Problems: No Hx Hypertension: Yes Hx Pacemaker: No Hx Asthma: No Hx COPD: No Hx Diabetes: No Hx Dialysis: No Hx Neurological Problems: No Hx Cerebrovascular Accident: No Hx Seizures: No Review of Systems All Other Systems: negative except mentioned in HPI Physical Exam 999% on room air which is normal Sp02 EP Interpretation: reviewed, normal General Appearance: well appearing, no apparent distress Head: normocephalic, atraumatic Eyes: bilateral eye PERRL, bilateral eye EOMI ENT: hearing grossly normal, normal pharynx Neck: supple Respiratory: lungs clear Cardiovascular #1: regular rate, rhythm Gastrointestinal: non tender, soft Musculoskeletal: normal inspection Neurologic: alert, oriented x3 Skin: normal color, no rash Lymphatic: no adenopathy Medical Decision Making Diagnostic Impression: Primary Impression: Urinary retention ER Course Patient has had several presentations with similar complaints Patient is awake alert has appropriate medical decision-making capacity He reports [facility] Patient appears to require specialty consultation with likely TURP procedure as needed At this time will have request for close follow-up Status: improved Disposition: HOME, SELF-CARE Condition: Improved Scripts Tamsulosin HCl (Flomax) 0.4 Mg Cap.er.24h 0.4 MG ORAL DAILY for 5 Days, CAP Prov: Bee Calzada DO 08/22/18 Additional Instructions: Patient is provided with the discharge instructions notified to follow up with primary doctor in the next 2-3 days otherwise return to the er with any worsening symptoms. Please note that this report is being documented using DRAGON technology. This can lead to erroneous entry secondary to incorrect interpretation by the dictating instrument. Bee Calzada DO August 22, 2018 20:20
[2018-08-22] MEDS ORDERED: FLOMAX0.4 MG ORAL (20:38)
[2018-08-22 21:06] VITALS: BP 148/78
== END 2018-08-22 23:30 | disposition home or self-care (01) ==
LOC: EMR 23:21
DX: R33.9 Retention of urine, unspecified (principal); I10 Essential (primary) hypertension
CPT/HCPCS: 99282

== ENCOUNTER 2018-09-29 17:26 | Emergency (ER) | payer MEDICARE, OTHER ==
[~2018-09-29] VITALS: Ht 175.3 cm; Wt 78.0 kg
--- NOTE | 2018-09-29 17:35 | NUR ---
ED Nurse Note: Patient walked into ED due to need to change adrian catheter. patient has been visiting ED monthly basis. patient is alert awake x4 ambulatory warm water with basin provided to the patient.
[2018-09-29 17:42] VITALS: BP 118/62
--- NOTE | 2018-09-29 17:42 | NUR ---
ED Nurse Note: adrian re-inserted using sterile technique, leg bag provided to the patient.
[2018-09-29 18:25] VITALS: BP 118/62
--- NOTE | 2018-09-29 18:41 | NUR ---
ER DISCHARGE NOTE: Patient is cleared to be discharged per HANNA ARAGON , pt is aox4, on room air, with stable vital signs. pt was given dc and prescription instructions, pt was able to verbalize understanding, pt id band removed without complications. pt is able to ambulate with steady gait. pt took all belongings.
--- NOTE | 2018-09-29 19:44 | Emergency Room Report ---
History of Present Illness General Chief Complaint: Male Urogenital Problems Source: Patient Present Illness HPI 77-year-old male presents ED for evaluation. Patient walked in for Adrian catheter change. History of BPH and has a Adrian catheter in place. States that he is here to have a replaced as it is clogged since earlier today. Denies any pain. Denies any dysuria or hematuria. Denies any fevers or chills. States that he has a urologist at the [facility] but takes a while to get an appointment. No other aggravating or relieving factors. Denies any other associated symptoms Allergies: Coded Allergies: No Known Allergies (Unverified , 05/26/18) Patient History Past Medical History: HTN Past Surgical History: none Pertinent Family History: none Social History: Denies: smoking, alcohol use, drug use Immunizations: UTD Reviewed Nursing Documentation: PMH: Agreed; PSxH: Agreed Nursing Documentation-PMH Past Medical History: No History, Except For Hx Cardiac Problems: No Hx Hypertension: Yes Hx Pacemaker: No Hx Asthma: No Hx COPD: No Hx Diabetes: No Hx Dialysis: No Hx Neurological Problems: No Hx Cerebrovascular Accident: No Hx Seizures: No Review of Systems All Other Systems: negative except mentioned in HPI Physical Exam Vital Signs Date Time Temp Pulse Resp B/P (MAP) Pulse Ox O2 Delivery O2 Flow Rate FiO2 09/29/18 17:32 98.2 101 20 121/58 (79) 99 Room Air Sp02 EP Interpretation: reviewed, normal General Appearance: no apparent distress, alert, GCS 15, non-toxic Head: normocephalic Eyes: bilateral eye normal inspection, bilateral eye PERRL ENT: normal ENT inspection Neck: normal inspection Respiratory: normal inspection Cardiovascular #1: normal inspection Gastrointestinal: normal bowel sounds, non tender, soft, non-distended, no guarding, no rebound Rectal: deferred Genitourinary: no CVA tenderness, other - adrian catheter in place Musculoskeletal: back normal, gait/station normal, normal range of motion, non- tender Neurologic: alert, oriented x3, responsive, motor strength/tone normal, sensory intact, speech normal Psychiatric: normal inspection Skin: normal inspection Lymphatic: normal inspection Medical Decision Making Diagnostic Impression: Primary Impression: Adrian catheter problem Qualified Codes: T83.9XXA - Unspecified complication of genitourinary prosthetic device, implant and graft, initial encounter ER Course Hospital Course 77-year-old M presents to ED for replacement of clogged adrian catheter. Differential diagnoses include: obstruction, BPH Clinical course Patient placed on stretcher. After initial history and physical I ordered adrian cather with immediate relief of obstruction discussed findings with patient. Patient comes here multiple times for similar replacement of Adrian catheter. Patient states he has hard time making appointment with his urologist at the [facility]. I will provide him with urology referrals Diagnosis - adrian catheter problem Stable and discharged home with adrian + leg bag. Instructed to followup with PMD/urologist. Return to ED if symptoms recur or worsen Last Vital Signs Date Time Temp Pulse Resp B/P (MAP) Pulse Ox O2 Delivery O2 Flow Rate FiO2 09/29/18 18:25 98.2 92 18 118/62 98 Room Air Status: improved Disposition: HOME, SELF-CARE Condition: Stable Referrals: [facility],REFERRING (PCP) Carlos Leo M.D. Patient Instructions: Adrian Catheter Care, Adult, [id number] Huy Khoury MD Sep 29, 2018 19:44
== END 2018-09-29 18:26 | disposition home or self-care (01) ==
LOC: EMR 17:47
DX: T83.9XXA Unspecified complication of genitourinary prosthetic device, implant and graft, initial encounter (principal); I10 Essential (primary) hypertension; X58.XXXA Exposure to other specified factors, initial encounter; Y92.9 Unspecified place or not applicable
CPT/HCPCS: 51702; 99284

== ENCOUNTER 2018-10-12 22:55 | Emergency (ER) | payer MEDICARE, OTHER ==
[~2018-10-12] VITALS: Ht 172.7 cm; Wt 65.8 kg
[2018-10-12 23:07] VITALS: BP 147/73
--- NOTE | 2018-10-12 23:10 | NUR ---
ED Nurse Note: Patient walked into ER c/o urine retention. Per patient he was not able to pee since 1800. AAO x4, VSS at this time, skin is dry warm to touch.
--- NOTE | 2018-10-12 23:15 | NUR ---
ED Nurse Note: Patient came in with adrian on, per patient there is no urine output since 1800.
--- NOTE | 2018-10-12 23:28 | Emergency Room Report ---
History of Present Illness General Chief Complaint: General Complaint Source: Patient Present Illness HPI Patient is a 78-year-old male who presented after decreased urine output he had prior history of hernia as well as a Bell catheter use. Patient had recently had Bell catheter change. [facility] He denies any fever. He had not been vomiting. He denies any severe pain. Reports having decreased output from his catheter. Allergies: Coded Allergies: No Known Allergies (Unverified , 05/26/18) Patient History Past Medical History: see triage record Reviewed Nursing Documentation: PMH: Agreed; PSxH: Agreed Nursing Documentation-PMH Past Medical History: No Stated History Hx Cardiac Problems: No Hx Hypertension: Yes Hx Pacemaker: No Hx Asthma: No Hx COPD: No Hx Diabetes: No Hx Dialysis: No Hx Neurological Problems: No Hx Cerebrovascular Accident: No Hx Seizures: No Review of Systems All Other Systems: negative except mentioned in HPI Physical Exam Vital Signs Date Time Temp Pulse Resp B/P (MAP) Pulse Ox O2 Delivery O2 Flow Rate FiO2 10/12/18 23:01 98.1 70 16 147/73 (97) 99 Room Air General Appearance: well appearing, no apparent distress, alert, GCS 15 Head: normocephalic, atraumatic ENT: hearing grossly normal, normal voice Neck: full range of motion, supple Respiratory: normal inspection, no respiratory distress, speaking full sentences Gastrointestinal: hernia - easilly reducible, other Genitourinary: no CVA tenderness, other - uncircumcised male Musculoskeletal: no calf tenderness Neurologic: normal inspection, alert, oriented x3, responsive, normal gait Psychiatric: normal inspection, mood/affect normal Skin: no rash Medical Decision Making Diagnostic Impression: Primary Impression: UTI (urinary tract infection) Additional Impression: Inguinal hernia of right side without obstruction or gangrene Last Vital Signs Date Time Temp Pulse Resp B/P (MAP) Pulse Ox O2 Delivery O2 Flow Rate FiO2 10/12/18 23:07 70 16 Room Air 10/12/18 23:07 98.1 147/73 99 Simone Yi MD Oct 12, 2018 23:28
[2018-10-12] MEDS ORDERED: Cephalexin 500mg cap ORAL ONE (23:30)
[2018-10-13] MEDS ORDERED: CEPHALEXIN500 MG ORAL (00:07)
[2018-10-13 00:20] VITALS: BP 147/73
== END 2018-10-13 00:20 | disposition home or self-care (01) ==
LOC: EMR 23:10
DX: N39.0 Urinary tract infection, site not specified (principal); K40.90 Unilateral inguinal hernia, without obstruction or gangrene, not specified as recurrent; I10 Essential (primary) hypertension
CPT/HCPCS: 99282

== ENCOUNTER 2018-11-06 14:07 | Emergency (ER) | payer MEDICARE, OTHER ==
[~2018-11-06] VITALS: Ht 175.3 cm; Wt 78.0 kg
[2018-11-06 14:10] VITALS: BP 144/85
--- NOTE | 2018-11-06 14:30 | NUR ---
ED Nurse Note: urine sample from new FC sent to the lab. four smell with sediment noted.
--- NOTE | 2018-11-06 14:30 | NUR ---
ED Nurse Note: 1800cc of urine came out since new FC inserted 10 minutes ago. JOBD made aware.
--- NOTE | 2018-11-06 14:32 | Emergency Room Report ---
History of Present Illness General Chief Complaint: Male Urogenital Problems Source: Patient Present Illness HPI 78-year-old male history of chronic catheter issues presents with clogged Bell prior to arrival, patient states he has not been able to urinate since this morning, denies any fevers chills, dysuria, he states he feels a lot of suprapubic pressure, alleviated by peeing, worsened by not being able to pee, no flank pain, he describes the suprapubic pain as sharp severity moderate. Allergies: Coded Allergies: No Known Allergies (Unverified , 05/26/18) Patient History Past Medical History: see triage record Reviewed Nursing Documentation: PMH: Agreed; PSxH: Agreed Nursing Documentation-PMH Past Medical History: No History, Except For Hx Cardiac Problems: No Hx Hypertension: Yes Hx Pacemaker: No Hx Asthma: No Hx COPD: No Hx Diabetes: No Hx Dialysis: No Hx Neurological Problems: No Hx Cerebrovascular Accident: No Hx Seizures: No Review of Systems All Other Systems: negative except mentioned in HPI Physical Exam Vital Signs Date Time Temp Pulse Resp B/P (MAP) Pulse Ox O2 Delivery O2 Flow Rate FiO2 11/06/18 14:13 97.7 62 16 172/81 (111) 96 Room Air Sp02 EP Interpretation: reviewed, normal General Appearance: well appearing, no apparent distress, alert Head: normocephalic, atraumatic Eyes: bilateral eye PERRL, bilateral eye EOMI ENT: uvula midline, moist mucus membranes Neck: supple, thyroid normal, supple/symm/no masses Respiratory: lungs clear, no respiratory distress, no retraction, no accessory muscle use Cardiovascular #1: normal peripheral pulses, regular rate, rhythm, no edema, no gallop, no murmur Gastrointestinal: other - Suprapubic fullness, tenderness to palpation suprapubically, no CVA tenderness, no guarding, no rebound Musculoskeletal: normal inspection Neurologic: alert, oriented x3 Psychiatric: mood/affect normal Skin: no rash, warm/dry Medical Decision Making Diagnostic Impression: Primary Impression: UTI (urinary tract infection) Additional Impression: Bell catheter problem ER Course 78-year-old male presents with Bell obstruction, Bell was replaced reevaluation patient is comfortable. Patient given 1 L of fluids, will start patient on cephalexin for UTI, will also provide patient with prescription, disposition home with return precautions Laboratory Tests Test 11/06/18 14:50 Urine Color Pale yellow Urine Appearance Slightly cloudy Urine pH 8 (4.5-8.0) Urine Specific [place] 1.010 (1.005-1.035) Urine Protein 2+ (NEGATIVE) H Urine Glucose (UA) Negative (NEGATIVE) Urine Ketones Negative (NEGATIVE) Urine Blood 4+ (NEGATIVE) H Urine Nitrite Negative (NEGATIVE) Urine Bilirubin Negative (NEGATIVE) Urine Urobilinogen Normal MG/DL (0.0-1.0) Urine Leukocyte Esterase 3+ (NEGATIVE) H Urine RBC Tntc /HPF (0 - 0) H Urine WBC 10-15 /HPF (0 - 0) H Urine Squamous Epithelial Cells Few /LPF (NONE/OCC) Urine Bacteria Moderate /HPF (NONE) H Last Vital Signs Date Time Temp Pulse Resp B/P (MAP) Pulse Ox O2 Delivery O2 Flow Rate FiO2 11/06/18 14:13 97.7 62 16 172/81 (111) 96 Room Air Disposition: HOME, SELF-CARE Condition: Stable Scripts Cefdinir (CEFDINIR) 300 Mg Capsule 300 MG PO BID, #14 CAP Prov: Con Ramirez MD 11/06/18 Referrals: [facility] Lamonte Feliz [facility]. [facility] Patient Instructions: Bell Catheter Care, Adult, [id number], Urinary Tract Infection Additional Instructions: The patient was provided with discharge instructions, notified to follow-up with a primary care doctor and or specialist in the next 24-48 hours, and to return to the ED if they have worsening of their symptoms. Please note that this report is being documented using TMAT technology. This can lead to erroneous entry secondary to incorrect interpretation by the dictating instrument. Con Ramirez MD Nov 06, 2018 14:32
--- NOTE | 2018-11-06 15:00 | NUR ---
ED Nurse Note: Patient ambulated to ER c/o pain 8/ on penis which has F/C. Patient is alert and oriented x4 and ambulatory. skin intact. calm and cooperative but moaning for pain. no acute distress noted at this time.
[2018-11-06 15:25] LABS: APPEARANCE,URINE SLIGHTLY CLOUDY; BILIRUBIN, URINE NEGATIVE (NEGATIVE); COLOR,URINE PALE YELLOW; GLUCOSE, URINE (UA) NEGATIVE (NEGATIVE); KETONES,URINE NEGATIVE (NEGATIVE); LEUKOCYTE ESTERASE ,URINE 3+ (NEGATIVE); NITRITE,URINE NEGATIVE (NEGATIVE); PH,URINE 8 (4.5-8.0); PROTEIN,URINE 2+ (NEGATIVE); UROBILINOGEN,URINE NORMAL MG/DL (0.0-1.0)
[2018-11-06] MEDS ORDERED: CEFDINIR300 MG PO (15:40)
[2018-11-06] MEDS ORDERED: cefTRIAXone 1 GM in NS 55 ML IVPB ONE (15:45)
[2018-11-06 16:53] VITALS: BP 145/85
--- NOTE | 2018-11-06 16:53 | NUR ---
ED Nurse Note: FC bag changed to leg bag.
--- NOTE | 2018-11-06 16:54 | NUR ---
ER DISCHARGE NOTE: Patient is cleared to be discharged per ERMD, pt is aox4, on room air, with stable vital signs and has FC 16Fr. pt was given dc and prescription instructions, pt was able to verbalize understanding and stated "I have an address to go.", pt id band and iv site removed without complications. pt is able to ambulate with steady gait. pt took all belongings.
== END 2018-11-06 16:55 | disposition home or self-care (01) ==
LOC: EMR 16:16
DX: N39.0 Urinary tract infection, site not specified (principal); T83.098A Other mechanical complication of other urinary catheter, initial encounter; Y84.6 Urinary catheterization as the cause of abnormal reaction of the patient, or of later complication, without mention of misadventure at the time of the procedure; Y92.9 Unspecified place or not applicable; I10 Essential (primary) hypertension
CPT/HCPCS: 81003; 87086; 96361; 96365; 99284; J0696

== ENCOUNTER 2018-11-15 17:07 | Emergency (ER) | payer MEDICARE, OTHER ==
[~2018-11-15] VITALS: Ht 172.7 cm; Wt 78.0 kg
[~2018-11-15 17:07] MED LIST changes: +CEFDINIR300 MG PO
--- NOTE | 2018-11-15 17:15 | NUR ---
ED Nurse Note: Patient walked into ED c/o adrian problems, states that he has had no output in urine for 5 hours now, states that usually he "shakes" his leg bag causing it to drain. patiet presents with a leg bag with a 16 [place] catheter. patient is alert and oriented x4, ambulatory with a steady gait, VSS
[2018-11-15 17:20] VITALS: BP 150/62
--- NOTE | 2018-11-15 17:40 | NUR ---
ED Nurse Note: PAtient's adrian replaced as well as a leg bag, 16 [place] tip
--- NOTE | 2018-11-15 17:53 | Emergency Room Report ---
History of Present Illness General Chief Complaint: Male Urogenital Problems Source: Patient Present Illness HPI 78 YO male presents to the ED c/o urinary Adrian catheter. Patient with a chronic indwelling catheter requiring frequent changes monthly and intermittent UTIs presents with complaints of his catheter being blocked x 5 hours. Reports some lower abdominal fullness which resolved after he was shaking his Adrian bag and was able to produce some urine. Patient is worried that it will get blocked again and would like his bag changed. Fevers, chills, nausea, vomiting. Patient does report history of constipation. Denies pain. Denies hematuria or blood in the stool. Denies low back pain, SMITH, confusion or any other aggravating or relieving factors. Allergies: Coded Allergies: No Known Allergies (Unverified , 05/26/18) Patient History Past Medical History: see triage record Past Surgical History: none Pertinent Family History: none Reviewed Nursing Documentation: PMH: Agreed; PSxH: Agreed Nursing Documentation-PMH Past Medical History: No History, Except For Hx Hypertension: Yes Hx Pacemaker: No Hx Asthma: No Hx COPD: No Hx Diabetes: No Hx Dialysis: No Hx Neurological Problems: No Hx Cerebrovascular Accident: No Hx Seizures: No Review of Systems All Other Systems: negative except mentioned in HPI Physical Exam Vital Signs Date Time Temp Pulse Resp B/P (MAP) Pulse Ox O2 Delivery O2 Flow Rate FiO2 11/15/18 17:13 98.1 86 16 159/64 (95) 97 Room Air Sp02 EP Interpretation: reviewed, normal General Appearance: no apparent distress, alert, GCS 15, non-toxic Head: normocephalic, atraumatic Eyes: bilateral eye normal inspection, bilateral eye PERRL ENT: hearing grossly normal, normal voice Neck: full range of motion Respiratory: chest non-tender, lungs clear, normal breath sounds, no wheezing, speaking full sentences Cardiovascular #1: regular rate, rhythm, no edema Gastrointestinal: normal bowel sounds, non tender, soft, non-distended, no guarding Genitourinary: normal inspection, no CVA tenderness, other - adrian catheter with only 100cc urine- dark cloudy appearance. no blood. Musculoskeletal: back normal, gait/station normal, normal range of motion, non- tender Neurologic: alert, oriented x3, responsive, motor strength/tone normal, sensory intact, normal gait, speech normal, grossly normal Psychiatric: judgement/insight normal Lymphatic: no adenopathy Medical Decision Making PA Attestation Dr. Yi is my supervising Physician whom patient management has been discussed with. Diagnostic Impression: Primary Impression: Complication, blocked Adrian catheter Qualified Codes: T83.091A - Other mechanical complication of indwelling urethral catheter, initial encounter Additional Impression: UTI (urinary tract infection) Qualified Codes: N30.01 - Acute cystitis with hematuria ER Course 78 YO male presents to the ED c/o urinary Adrian catheter. Patient with a chronic indwelling catheter requiring frequent changes monthly and intermittent UTIs presents with complaints of his catheter being blocked x 5 hours. Reports some lower abdominal fullness which resolved after he was shaking his Adrian bag and was able to produce some urine. Patient is worried that it will get blocked again and would like his bag changed. Fevers, chills, nausea, vomiting. Patient does report history of constipation. Denies pain. Denies hematuria or blood in the stool. Denies low back pain, SMITH, confusion or any other aggravating or relieving factors. Ddx considered but are not limited to Adrian catheter malfunction, UTI, urosepsis , bladder outlet obstruction syndrome name a few. Vital signs: are WNL, pt. is afebrile H&PE are most consistent with asymptomatic Adrian catheter malfunction patient is nontoxic in appearance not complaining of fevers or chills no other complaints at this time. ORDERS: -UA: consistent with signs of infection will treat empirically and await full C & S report for any changes to Abx. ED INTERVENTIONS: -Adrian catheter change by RN -d/w pt. will place on oral abx due to most recent UA- reflux of dipthoids and having indwelling catheter. UTI low suspicion and most likely is catheter colonization. also d/w pt. will place him on oral stool softeners and he needs to follow up with his PCP and urologist. -I do not identify an emergent condition at this time. With current presentation , pt. is stable for close outpatient follow up and conservative treatment. D/ w pt. to return promptly to ED with worsening or new symptoms.- Pt. verbalizes' understanding and agreement with proposed treatment plan.proposed treatment plan. DISCHARGE: At this time pt. is stable for d/c to home. Will provide printed patient care instructions, and any necessary prescriptions. Care plan and follow up instructions have been discussed with the patient prior to discharge. Labs Test 11/15/18 17:45 Urine Color Pale yellow Urine Appearance Slightly cloudy Urine pH 9 (4.5-8.0) Urine Specific [place] 1.015 (1.005-1.035) Urine Protein 4+ (NEGATIVE) Urine Glucose (UA) Negative (NEGATIVE) Urine Ketones Negative (NEGATIVE) Urine Blood 4+ (NEGATIVE) Urine Nitrite Negative (NEGATIVE) Urine Bilirubin Negative (NEGATIVE) Urine Urobilinogen Normal MG/DL (0.0-1.0) Urine Leukocyte Esterase 3+ (NEGATIVE) Urine RBC 10-15 /HPF (0 - 0) Urine WBC 5-10 /HPF (0 - 0) Urine Squamous Epithelial Cells None /LPF (NONE/OCC) Urine Bacteria Many /HPF (NONE) Last Vital Signs Date Time Temp Pulse Resp B/P (MAP) Pulse Ox O2 Delivery O2 Flow Rate FiO2 11/15/18 17:13 98.1 86 16 159/64 (95) 97 Room Air Disposition: HOME, SELF-CARE Condition: Stable Scripts Docusate Sodium (DOC-Q-LACE) 100 Mg Capsule 100 MG ORAL THREE TIMES A DAY, #90 CAP 0 Refills Prov: Brandy Stewart 11/15/18 Nitrofurantoin Monohyd/M-Cryst* (MACROBID 100 MG*) 100 Mg Capsule 100 MG ORAL EVERY 12 HOURS for 5 Days, #10 CAP Prov: Brandy Stewart 11/15/18 Patient Instructions: Adrian Catheter Care, Adult, [id number], Urinary Tract Infection Additional Instructions: Take medications as directed. Follow up with a Primary Care Provider and UROLOGIST in 3-5 days, even if your symptoms have resolved. --Please review list of primary care clinics, if you do not already have a primary care provider Return sooner to ED if new symptoms occur, or current symptoms become worse. - Please note that this Emergency Department Report was dictated using SnapLayoutcam specialist technology software, occasionally this can lead to erroneous entry secondary to interpretation by the dictation equipment. Brandy Stewart Nov 15, 2018 17:53
[2018-11-15] MEDS ORDERED: NITROFURANTOIN100 M2 ORAL (17:55)
[2018-11-15] MEDS ORDERED: DOC-Q-LACE100 M1 ORAL (17:55)
[2018-11-15 18:07] LABS: APPEARANCE,URINE SLIGHTLY CLOUDY; BILIRUBIN, URINE NEGATIVE (NEGATIVE); COLOR,URINE PALE YELLOW; GLUCOSE, URINE (UA) NEGATIVE (NEGATIVE); KETONES,URINE NEGATIVE (NEGATIVE); LEUKOCYTE ESTERASE ,URINE 3+ (NEGATIVE); NITRITE,URINE NEGATIVE (NEGATIVE); PH,URINE 9 (4.5-8.0); PROTEIN,URINE 4+ (NEGATIVE); UROBILINOGEN,URINE NORMAL MG/DL (0.0-1.0)
[2018-11-15 18:45] VITALS: BP 148/60
== END 2018-11-15 18:45 | disposition home or self-care (01) ==
LOC: EMR 17:56
DX: T83.091A Other mechanical complication of indwelling urethral catheter, initial encounter (principal); N30.01 Acute cystitis with hematuria; X58.XXXA Exposure to other specified factors, initial encounter; Y92.9 Unspecified place or not applicable; I10 Essential (primary) hypertension
CPT/HCPCS: 51702; 81003; 87086; 99284

== ENCOUNTER 2018-12-04 07:58 | Emergency (ER) | payer MEDICARE, OTHER ==
[~2018-12-04] VITALS: Ht 175.3 cm; Wt 77.1 kg
[~2018-12-04 07:58] MED LIST changes: +DOC-Q-LACE100 M1 ORAL
[2018-12-04 08:14] VITALS: BP 136/80
--- NOTE | 2018-12-04 08:18 | NUR ---
ED Nurse Note: pt walked in to ER c/o F/C is too big and urine is not coming out. per pt, the catheter was changed to 18 [place] [facility] [place]. checked the catheter and it is 16 Fr. no urine present in the bag. pt c/o pain in penis area 09/14. pt aao x3-4 and mild agitation noted. skin clean and intact. pt is in gown. no acute distress noted.
--- NOTE | 2018-12-04 08:35 | NUR ---
ED Nurse Note: removed the old 16 Fr catheter and inserted new 16 Fr. yellow urine 800 cc came out and pt reported relieved pain.
[2018-12-04] MEDS ORDERED: Acetaminophen 500mg (ES) tab ORAL ONE (08:45)
[2018-12-04 08:50] VITALS: BP 127/74
--- NOTE | 2018-12-04 08:52 | NUR ---
ED Nurse Note: Pt cleared by health care Provider for discharge after new Bell catheter inserted and urine came out 1L. DC instructions was given and explained to pt and verbalized understanding of teachings. All medical deviecs such as ID band removed. Pt is AAO x4, ambulatory and left with all personal belongings.
--- NOTE | 2018-12-04 09:12 | Emergency Room Report ---
History of Present Illness General Chief Complaint: Male Urogenital Problems Source: Patient, Medical Record Present Illness HPI 78-year-old male presents ED for evaluation. Patient states he is here for Adrian catheter change. Is well-known to [facility] and has been here multiple times for Adrian catheter replacement. History of BPH. States he stopped flowing this morning. Denies fevers or chills. Denies pain. Denies flank pain. Denies nausea or vomiting. No other aggravating relieving factors. Denies any other associated symptoms Allergies: Coded Allergies: No Known Allergies (Unverified , 05/26/18) Patient History Past Medical History: HTN Past Surgical History: none Pertinent Family History: none Social History: Denies: smoking, alcohol use, drug use Immunizations: UTD Reviewed Nursing Documentation: PMH: Agreed; PSxH: Agreed Nursing Documentation-PMH Past Medical History: No History, Except For Hx Hypertension: Yes Hx Pacemaker: No Hx Asthma: No Hx COPD: No Hx Diabetes: No Hx Dialysis: No Hx Neurological Problems: No Hx Cerebrovascular Accident: No Hx Seizures: No Review of Systems All Other Systems: negative except mentioned in HPI Physical Exam Vital Signs Date Time Temp Pulse Resp B/P (MAP) Pulse Ox O2 Delivery O2 Flow Rate FiO2 12/04/18 08:01 98.2 99 18 136/80 (98) 97 Room Air Sp02 EP Interpretation: reviewed, normal General Appearance: no apparent distress, alert, GCS 15, non-toxic Head: normocephalic Eyes: bilateral eye normal inspection, bilateral eye PERRL ENT: normal ENT inspection Neck: normal inspection Respiratory: normal inspection Cardiovascular #1: normal inspection Gastrointestinal: normal bowel sounds, non tender, soft, non-distended, no guarding, no rebound Rectal: deferred Genitourinary: no CVA tenderness, other - adrian catheter in place Musculoskeletal: normal inspection Neurologic: alert, oriented x3, responsive, motor strength/tone normal, sensory intact, speech normal Psychiatric: normal inspection Skin: no rash Lymphatic: normal inspection Medical Decision Making Diagnostic Impression: Primary Impression: Urinary retention ER Course Hospital Course 78-year-old M presents to ED complaining of urinary retention. h/o BPH Differential diagnoses include: obstruction, UTI, BPH Clinical course Patient placed on stretcher. After initial history and physical I ordered adrian cather with immediate relief of obstruction Patient states he feels better. Patient has been here several times for Adrian catheter replacement. Patient states he does have a urologist at the [place] but is unable to see him on a regular basis. I will also provide him with referrals Diagnosis - urinary retention Stable and discharged home with adrian + leg bag. Instructed to followup with PMD/urologist. Return to ED if symptoms recur or worsen Last Vital Signs Date Time Temp Pulse Resp B/P (MAP) Pulse Ox O2 Delivery O2 Flow Rate FiO2 12/04/18 08:50 97.9 85 18 127/74 100 Room Air Status: improved Disposition: HOME, SELF-CARE Condition: Stable Referrals: NON PHYSICIAN (PCP) [facility] Patient Instructions: Adrian Catheter Care, Adult, [id number] Huy Khoury MD Dec 04, 2018 09:12
== END 2018-12-04 08:50 | disposition home or self-care (01) ==
LOC: EMR 08:42
DX: N40.1 Benign prostatic hyperplasia with lower urinary tract symptoms (principal); R33.8 Other retention of urine; Z46.6 Encounter for fitting and adjustment of urinary device; I10 Essential (primary) hypertension
CPT/HCPCS: 99282